=== PATIENT | female | born 1975 | race Asian ===

== ENCOUNTER 2020-05-05 20:47 | Emergency (ER) | payer OTHER ==
--- NOTE | 2020-05-05 22:02 | EDPHYS ---
Physician Documentation [facility] Name: Michelle Yeh Age: 44 yrs Sex: Female : 1975 Arrival Date: 05/05/2020 Time: 20:48 Bed 28 Private MD: ED Physician Yariel Hoskins HPI: 05/06 01:19 This 44 yrs old Female presents to ER via Ambulatory with complaints of Runny tw4 Nose, Shortness Of Breath. 01:19 The patient or guardian reports cough, described as mild. Onset: The symptoms/episode tw4 began/occurred yesterday. Severity of symptoms: At their worst the symptoms were mild, in the emergency department the symptoms are unchanged. Modifying factors: The symptoms are alleviated by nothing, the symptoms are aggravated by nothing. Associated signs and symptoms: The patient has no apparent associated signs or symptoms. The patient has not experienced similar symptoms in the past. Historical: - Allergies: 05/05 21:00 Ibuprofen; ll1 21:00 Azithromycin; ll1 - PMHx: 21:00 Asthma; chronis back pain; ll1 - PSHx: 21:00 ; ll1 - Immunization history:: Flu vaccine is up to date. - Social history:: Smoking status: Patient denies any tobacco usage or history of. Patient uses alcohol, but reports only rare drinking. only on a social basis. Patient/guardian denies using street drugs. ROS: 05/06 01:19 Constitutional: Negative for fever, chills, and weight loss, Eyes: Negative for injury, tw4 pain, redness, and discharge. Cardiovascular: Negative for chest pain, palpitations, and edema, Respiratory: Negative for shortness of breath, cough, wheezing, and pleuritic chest pain, Abdomen/GI: Negative for abdominal pain, nausea, vomiting, diarrhea, and constipation, Back: Negative for injury and pain, MS/Extremity: Negative for injury and deformity, Skin: Negative for injury, rash, and discoloration, Neuro: Negative for headache, weakness, numbness, tingling, and seizure. ENT: Positive for rhinorrhea. Exam: 01:19 Constitutional: This is a well developed, well nourished patient who is awake, alert, tw4 and in no acute distress. Head/Face: Normocephalic, atraumatic. ENT: Nares patent. No nasal discharge, no septal abnormalities noted. Tympanic membranes are normal and external auditory canals are clear. Oropharynx with no redness, swelling, or masses, exudates, or evidence of obstruction, uvula midline. Mucous membranes moist. Chest/axilla: Normal chest wall appearance and motion. Nontender with no deformity. No lesions are appreciated. Cardiovascular: Regular rate and rhythm with a normal S1 and S2. No gallops, murmurs, or rubs. Normal PMI, no JVD. No pulse deficits. Respiratory: Lungs have equal breath sounds bilaterally, clear to auscultation and percussion. No rales, rhonchi or wheezes noted. No increased work of breathing, no retractions or nasal flaring. Abdomen/GI: Soft, non-tender, with normal bowel sounds. No distension or tympany. No guarding or rebound. No evidence of tenderness throughout. Back: No spinal tenderness. No costovertebral tenderness. Full range of motion. MS/ Extremity: Pulses equal, no cyanosis. Neurovascular intact. Full, normal range of motion. Neuro: Awake and alert, GCS 15, oriented to person, place, time, and situation. Cranial nerves II-XII grossly intact. Motor strength 5/5 in all extremities. Sensory grossly intact. Cerebellar exam normal. Normal gait. Vital Signs: 05/05 20:57 BP 144 / 87; Pulse 102; Resp 18; Temp 98.5; Pulse Ox 100% ; Weight 83.01 kg; Height 5 ll1 ft. 4 in. (162.56 cm); Pain 3/10; 20:57 Body Mass Index 31.41 (83.01 kg, 162.56 cm) ll1 MDM: 21:05 Patient medically screened. tw4 05/06 01:19 Differential Diagnosis: Obstructed Airway Bronchitis Influenza. Data reviewed: vital tw4 signs, nurses notes. Data reviewed: radiologic studies, plain films. Data interpreted: Pulse oximetry: Interpretation: normal. Test interpretation: by ED physician or midlevel provider: plain radiologic studies. Counseling: I had a detailed discussion with the patient and/or guardian regarding: the historical points, exam findings, and any diagnostic results supporting the discharge/admit diagnosis. Special discussion: I discussed with the patient/guardian in detail that at this point there is no indication for admission to the hospital. It is understood, however, that if the symptoms persist or worsen the patient needs to return immediately for re-evaluation. 05/05 21:05 Order name: COVID-19 [facility] 05/05 21:05 Order name: Flu [facility] 05/05 20:55 Order name: CXR XRAY [facility] 05/05 21:05 Order name: Strep [facility] 05/05 21:05 Order name: Document PUI#; Complete Time: 21:17 4 05/05 21:05 Order name: Droplet/Contact Precautions; Complete Time: 21:17 4 05/05 21:05 Order name: Labs collected and sent; Complete Time: 21:17 4 05/05 21:05 [facility] [id number]/ ; Complete Time: 21:17 4 05/05 21:05 Order name: O2 Per Protocol; Complete Time: 21:17 tw4 Administered Medications: No medications were administered Disposition: 05/05/20 22:01 Discharged to Home. Impression: Acute upper respiratory infection, unspecified. - Condition is Stable. - Discharge Instructions: Upper Respiratory Infection, Adult. - Prescriptions for Tessalon Perles 100 mg Oral Capsule - take 1 capsule by ORAL route every 8 hours As needed; 15 capsule. Albuterol Sulfate 90 mcg/actuation - inhale 1-2 puff by INHALATION route every 4-6 hours; 1 Inhaler. - Medication Reconciliation Form, Thank You Letter, Antibiotic Education, Prescription Opioid Use form. - Follow up: Private Physician; When: Upon discharge from the Emergency Department; Reason: Recheck today's complaints, Continuance of care, Re-evaluation by your physician. - Problem is new. - Symptoms have improved. Signatures: Dispatcher [employer] EDMS Rojas Dunlap RN RN jb4 Yariel Hoskins MD MD tw4 Ronnie Bai RN RN ll1 Corrections: (The following items were deleted from the chart) 05/05 22:17 22:05/05/2020 22:01 Discharged to Home. Impression: Acute upper respiratory jb4 infection, unspecified. Condition is Stable. Forms are Medication Reconciliation Form, Thank You Letter, Antibiotic Education, Prescription Opioid Use. Follow up: Private Physician; When: Upon discharge from the Emergency Department; Reason: Recheck today's complaints, Continuance of care, Re-evaluation by your physician. Problem is new. Symptoms have improved. tw4
--- NOTE | 2020-05-05 22:02 | ER ---
Nurse's Notes [facility] Name: Michelle Yeh Age: 44 yrs Sex: Female : 1975 Arrival Date: 05/05/2020 Time: 20:48 Bed 28 Private MD: Diagnosis: Acute upper respiratory infection, unspecified Presentation: 05/05 20:57 Chief complaint: Patient states: Itchy throat. runny nose, slight cough, SAMUEL since last ll1 night. No fever. No N/V/D. Coronavirus screen: Client denies travel out of the [place] in the last 14 days. congestion, cough unrelated to allergies, fatigue, headache, sore throat, Client presents with at least one sign or symptom that may indicate coronavirus-19. Standard/surgical mask placed on the client. Ebola Screen: Patient denies travel to an Ebola-affected area in the 21 days before illness onset. Initial Sepsis Screen: Does the patient meet any 2 criteria? HR > 90 bpm. No. Patient's initial sepsis screen is negative. Risk Assessment: Do you want to hurt yourself or someone else? Patient reports no desire to harm self or others. Onset of symptoms was May 04, 2020. 20:57 Method Of Arrival: Ambulatory ll1 20:57 Acuity: CJ 3 ll1 Historical: - Allergies: 21:00 Ibuprofen; ll1 21:00 Azithromycin; ll1 - PMHx: 21:00 Asthma; chronis back pain; ll1 - PSHx: 21:00 ; ll1 - Immunization history:: Flu vaccine is up to date. - Social history:: Smoking status: Patient denies any tobacco usage or history of. Patient uses alcohol, but reports only rare drinking. only on a social basis. Patient/guardian denies using street drugs. Screenin:15 Abuse screen: Denies threats or abuse. Nutritional screening: No deficits noted. jb4 Tuberculosis screening: No symptoms or risk factors identified. Fall Risk None identified. Assessment: 21:15 General: Appears in no apparent distress. comfortable, Behavior is calm, cooperative, jb4 appropriate for age. Pain: Denies pain. Neuro: Level of Consciousness is awake, alert, obeys commands, Oriented to person, place, time, situation. Cardiovascular: Patient's skin is warm and dry. Respiratory: Reports shortness of breath on exertion Airway is patent Respiratory effort is even, unlabored, Respiratory pattern is regular, symmetrical. GI: No signs and/or symptoms were reported involving the gastrointestinal system. : No signs and/or symptoms were reported regarding the genitourinary system. EENT: No signs and/or symptoms were reported regarding the EENT system. Derm: Skin is intact, Skin is pink, warm \T\ dry. Musculoskeletal: Circulation, motion, and sensation intact. Range of motion: intact in all extremities. 22:16 Reassessment: Patient appears in no apparent distress at this time. Patient and/or jb4 family updated on plan of care and expected duration. Pain level reassessed. Patient is alert, oriented x 3, equal unlabored respirations, skin warm/dry/pink. Vital Signs: 20:57 BP 144 / 87; Pulse 102; Resp 18; Temp 98.5; Pulse Ox 100% ; Weight 83.01 kg; Height 5 ll1 ft. 4 in. (162.56 cm); Pain 3/10; 20:57 Body Mass Index 31.41 (83.01 kg, 162.56 cm) ll1 ED Course: 20:48 Patient arrived in ED. cl3 20:54 Yariel Hoskins MD is Attending Physician. tw4 20:59 Triage completed. ll1 21:00 Arm band placed on Patient placed in an exam room, on a stretcher. ll1 21:15 Patient has correct armband on for positive identification. Bed in low position. Call jb4 light in reach. Side rails up X 1. Pulse ox on. NIBP on. 21:16 Rojas Dunlap RN is Primary Nurse. jb4 21:47 CXR XRAY In Process Unspecified. EDMS 22:16 No provider procedures requiring assistance completed. Patient did not have IV access jb4 during this emergency room visit. Administered Medications: No medications were administered Outcome: 22:01 Discharge ordered by . tw4 22:16 Discharged to home ambulatory. jb4 22:16 Condition: stable 22:16 Discharge instructions given to patient, Instructed on discharge instructions, follow up and referral plans. medication usage, Demonstrated understanding of instructions, follow-up care, medications, Prescriptions given X 2. 22:17 Patient left the ED. jb4 Signatures: Dispatcher [employer] EDSC oRjas Dunlap RN RN jb4 Yariel Hoskins MD MD tw4 Emilie Bai cl3 Ronnie Bai, MELANI RN ll1
[2020-05-05 22:23] VITALS: BP 144/87; TEMP 98.5; O2SAT 100
--- NOTE | 2020-05-06 07:59 | RAD REPORT ---
EXAM DESCRIPTION: [place] [facility]/05/2020 9:47 pm CLINICAL HISTORY: sob COMPARISON: 2018 FINDINGS: The lungs appear clear of acute infiltrate. The heart is normal size IMPRESSION: No acute abnormalities displayed
== END 2020-05-05 22:17 | disposition home or self-care (01) ==
LOC: ER 20:47
DX: U07.1 COVID-19 (principal); J06.9 Acute upper respiratory infection, unspecified; Z88.1 Allergy status to other antibiotic agents; Z88.6 Allergy status to analgesic agent
CPT/HCPCS: 87081; 87804 ×2; 71045; 99283; U0001

== ENCOUNTER 2021-04-27 19:58 | Emergency (ER) | payer OTHER ==
--- OUTSIDE RECORDS SUMMARY | 2021-04-27 20:01 | XMS REPORT | Continuity of Care Document ---
:1975 Author Organization [facility] t Address [address] [place] [address] Dr. Caceres. [address] [place] [address] Care Team Providers Name Role Phone Phylicia Montes MD Attending Clinician PHYLICIA MONTES Attending Clinician Unavailable Leslie Lewis MD Attending Clinician Vijay HARDY Attending Clinician Quinn Henriquez MD Attending Clinician PHYLICIA MONTES Admitting Clinician Unavailable Payers Payer Name Policy Type Policy Number Effective Date Expiration Date S brandan AETNA - MGD [id number] [address] [facility] CAREAETNA SELECT 00:00:00 - Medica l [facility] [id number] 2020-Present HMO/POS Problems Condition Condition Condition Status Onset Resolution Last Treating Co mments Source Name Details Category Date Date Treatment Clinician Date Missed ab Missed ab Disease Active [facility] Center Allergies, Adverse Reactions, Alerts Allergy Allergy Status Severity Reaction(s) Onset Inactive Treating Comm ents Source Name Type Date Date Clinician Ibuprofe Propensi Active [facility] - adverse 00:00: Medical reaction 00 Center s Clarithr Propensi Active [facility] omycin [facility] to [facility]- [facility] - adverse 00:00: Medical reaction 00 Center s Shrimp Propensi Active Anaphylaxis [facility] 5 [facility] - adverse 00:00: Medical reaction 00 Center s Family History Family Member Diagnosis Comments Start Date Stop Date Source Natural father Hypertension [facility] Natural mother Hypertension [facility] Social History Social Habit Start Date Stop Date Quantity Comments Source History SDOH [facility] - Alcohol Std Drinks Medica l Center History SDOH [facility] - Alcohol Binge Medical Radha ter Sex Assigned At [facility] Tobacco use and 2021-03-16 2021-03-16 Never used [facility] kes - exposure 00:00:00 00:00:00 [facility] Alcohol intake 2021-03-16 2021-03-[address] [facility] - 00:00:00 00:00:00 non-drinker Medical Cente r (finding) History SDOH 2021-02-05 2021-02-[address] [facility] - Alcohol Frequency 00:00:00 00:00:00 [facility] Smoking Status Start Date Stop Date Source [facility] Mc[facility] Medications Ordered Filled Start Stop Current Ordering Indication Dosage Frequency Signature Comments Components Source Medication Medication Date Date Medication? Clinician (SIG) Name Name acetaminoph 2021- Yes 650mg Take [address] en 02-19 05-13 tablets [facility] - (TYLENOL) 00:00: 23:59 (650 mg Medi enrique 325 MG 00 :00 total) by Center tablet mouth every 6 (six) hours as needed for Pain for up to 360 days. Symbicort Yes 2{puff} Q.5D Inhale [address] 160-4.5 4-15 puffs by [facility] - mcg/actuati 00:00: mouth via M edical on inhaler 00 inhaler 2 Cent er (two) times daily. promethazin 2020- No GIVE [address] e-dextromet 4-15 -12 TEASPOONFU L ukes - horphan 00:00: 00:00 L BY MOUTH Med ical (PROMETHAZI 00 :00 FOUR TIMES Ce nter NE-DM) DAILY 6.25-15 NEEDED FOR mg/5 mL COUGH syrup montelukast 2020- No 10mg QD Take [address] (SINGULAIR) 2-12 by mouth Melly es - 10 mg 00:00: 00:00 daily. Medical tablet 00 :00 Center Vital Signs Vital Name Observation Time Observation Value Comments Source Body temperature 2021-03-15 08:38:00 36.33 [facility] Body height 2021-03-15 08:38:00 162.6 cm [facility] Body weight 2021-03-15 08:38:00 81.647 kg [facility] BMI 2021-03-15 08:38:00 30.90 kg/m2 [facility] Systolic blood 2021-02-19 08:28:00 128 mm[Hg] [facility] Diastolic blood 2021-02-19 08:28:00 74 mm[Hg] [facility] Heart rate 2021-02-19 08:28:00 84 /min [facility] Respiratory rate 2021-02-19 08:28:00 18 /min [facility] Oxygen saturation in 2021-02-19 08:28:00 100 /min [facility] Arterial blood by Medical Ce nter Pulse oximetry Procedures Procedure Date / Time Performed Performing Clinician [facility] e TISSUE EXAM 2021-02-19 07:47:00 Hank Montes [facility] s [facility] DILATATION & 2021-02-19 07:33:00 Hank Montes [facility]I s - CURETTAGE,EVACUATION/SUC [facility] TION SARS-COV2/RT-PCR ([facility] & 2021-02-14 07:34:[address] [facility] REF [facility] CBC W/PLT COUNT & AUTO 2021-02-14 07:34:00 Hank Montes [facility] - DIFFERENTIAL [facility] TYPE AND SCREEN, 2021-02-14 07:34:00 Hank Montes CHI es - AUTOMATED [facility] US OB TRANSVAGINAL 2021-02-13 11:12:00 Hank Montes [facility] - [facility] HCG, QUANTITATIVE, 2021-02-05 15:44:00 Hank Montes [facility] CBC W/PLT COUNT & AUTO 2021-02-05 15:44:[address] [facility] - DIFFERENTIAL [facility] ANTIBODY SCREEN ([facility] 2021-02-05 15:44:[address] [facility] - & [facility] ONLY) [facility] ABORH, MANUAL 2021-02-05 15:44:[address] US OB TRANSVAGINAL 2021-02-05 07:58:[address] [facility] Plan of Care Planned Activity Planned Date Details Comments Source Future Scheduled 2021-06-[address] [facility] - Test 00:00:00 (Season Ended) [code Medical Center = INFLUENZA VACCINE (Season Ended)] Future Scheduled [address] [facility] - Test 00:00:00 malignant neoplasm Medical C enter of cervix (procedure) [code = 763978144] Future Scheduled [address] [facility] - Test 00:00:00 (procedure) [code = Medical Center 37423202] Future Scheduled 1995 DTAP/TDAP/TD [facility] - Test 00:00:00 VACCINES (1 - Tdap) [facility] [code = DTAP/TDAP/TD VACCINES (1 - Tdap)] Future Scheduled [address] [facility] - Test 00:00:00 SCREENING [code = Medical nter HEPATITIS C SCREENING] Future Scheduled 1988 COVID-19 VACCINE (1) [facility] - Test 00:00:00 [code = COVID-[address] VACCINE (1)] Results Test Description Test Time Test Comments Results Result Comments Source Tissue Exam 2021-02-20 10:48:00 Test Item Value Reference Range Interpretation Comme nts Case Report (test code = 104) Surgical Pathology Report Case: [id number] Authorizing Provider: Hank Montes, Collected: 02/19/2021 07:47 AM Ordering Location: [facility] PERIOPERATIVE Received: 02/19/2021 09:37 AM SERVICES Pathologist: Alanna Millan MD Specimen: Products of Conception DIAGNOSIS (test code = 3220) e8wopWZjADCrc0xgIPGmcBYmUwMyJiXwCeJcYq pc dWMxIHtccnRmMVxlcGljOTIwMlxhbnNpXHNwbHRw T2AjzxarUWeaJS6aYH9jrXzlhIHumBOqHCIlCgUr n6ckp299bIEqj6czZULPokhepVn3xDkpD94th2C0 TlrzC19laASyBAgmsOOdosqpzlYeCPWUX5KPD9AS MF6MHXJBJeOSOLSZT83nPKYCFSTGNGLWX26uUT7J JNGCBvVMHJZCYFhhrZXbNQDyFE1jRS2BIKDFDoJd S2jJQrzONzmHUTBSXJvUZSEVNDZGUEJHODGEXA6L MsJJDSLvQTFVBuBBO6BPEoJtX2pUZVTDXkCQTVCW CYGMFpFpSSCEQ10SXwGGVJYgdvjmFFVlOKlokGhp XDDtze16VHW1LrHph4O3WGO4KADvNQSrd1ftXUUl mLDgMvLhKxZdDlZyYphzaWXtQLBkGtGbe3rjd439 lBDmy2kwZUZqAxA7aJEaOIKdcYJeZ949MXCmETyj d8lra4KzIODjzCOfj8W5CNGNphpspAt6cEtvA14i d1A0MznjZ0yeUGEiTKZyX5MgXT5nFVJmLgl6UGH5 UQS5JFCtDZYbV4KqWP1xNEMolUEoIKs0h8zdzJev UWXqSSJ0s4ukYDbqprOyNA1vgq3cuIi6h6dvwrLs TYInZUGqhYHUOZPsK6FqdVitXr6vvGp8nTmhYdeo GSK1Mwu9BZ2tzn58yui5hNtkIFBnsqoaMvX1VRcv TOCiaqrxLSu3AEkkRCPpiRG8HLWeiROuV0PpIESr QV9ysqq4ZRP0THgcNUYzVhU0UUZpoPBkAZAsnNua PCnzy382CNL8RfPxZO9rZ6Nqa2P0tS0jvWCdPVPt hTHyBdOlWJKkof8kzNFkXSprf5LyRRA2rsU7wTAa lAQqQHJxSyB7QWfjGW1orp74ZENoLON8id9fyVTr kOihbsQgfZHuWKqxT1CfFQUze944IHZjU9SzCVBg d2E8loGvAqMnEVPbyJR2mxB3GRXlPP2lwvmdl8qe DEdqVVclILLxkbQ6qeB0ZLKdtNUvF5DymN4vALYz EU0zutltj2fgFYK5MAodYADhKSG5HxBlDKXud5Ic mpm8OwZss8FysQIwPTwhG74qk430NEItjdTuJ1ty wSEnagjfeTYjrosoHCdmrpJ6EDIyDHkrenyqKQWf DYflY7fmIhNsQTJwbEdoNNiua2GxNVYnZEZzXfBu nXVhDSNkOju4LAMgeLYwRFRyTeAwV8xtokghXmSA CTSig9udE0uedVUXzWIxI6McYTxtlqKbIUywANst MuAfDVz7CK46IBK5WXXoik30 CPT Code(s) (test code = 3357) b3cilNBwYKZsyAD4DlJsDXDsw6hst1AqdYPh cGFy FNnkpUHgvvFxnf91dSX5cI10YK4nJCTzLhT8JHVb lxW4Cnp1OWNjIJDdgBSyS494z8ekx8oopwIgpGM7 fVxwYXJkXHBsYWluXGZzMjAgODgzMDVccGFyfQ== CLINICAL HISTORY (test code = 3356) s1zcyXYhOWCpvKT1LiBtOTBsx4yfk9M sdHBncGFy MSkycHAsopSmgb27lFI6dU51YR0mVLDzZhO1UENx ypE3Laf5XNDpYOYuhFAdU040w9tsm5elalVpgOL8 lBcfXCLqCHZiLUkyECRzRoQhPOycl4QuEMMdo5B6 bD1wEMJieh3= SPECIMEN SOURCE (test code = 3377) m1svnPHtOSQggDQ3NlGuINDwk7nue0Ls dHBncGFy HGrjhWExmtLwnn88mAH1bL35BK7oSWOsLqN3FZSr kdI4Ahw0UUDvNEPvdXOuK914h6smt5ucupEasDN6 uCkkCUKdHBKtLBswGSSsKvRtEFYwHCSzkIWxp1Dm R74qH3DvoJoyklMtiSAxbK== GROSS DESCRIPTION (test code = 3366) r7epwDDmIAYnlSU4VbIfRURlc2clf4 BsdHBncGFy IKxhtNBshiGvlh96eQP4fK10AS7zWTRqLlU2KRJt lkO7Ggf7GQEkEQWcwSYzS281g4hxp2tvjsUvpWV8 fVxwYXJkXHBsYWluXGZzMjAgVGhlIHNwZWNpbWVu EAesWHTbZ9MhctMdKHtwTTMwyTB9pTObIHJoXDDb NBJltKDfBFumfAdcjNbqHPWyqSayqoPeyaZtHB8r LHSnFMGtL4UrQZDtX02mXSEefB3rFQBfYY2rYRJa y1wlqqO7IFDsFTIeLnFiq0F8Q9HxWP8sWFQvwbTp hVRob85hSWEmDCGrr59xpCI8xjNyJaHyfLp7rCYf JHGmXEEqVrMoa51zvWndt4KoTMTfDApiXH03lyGe WAUysRAiKCZ1rOWcnV3lZWGnsCBbdGyeZLT1wPpk YCOdA8JmKKV1E9Ybl71hHRA2sTIbZO8hHKE9zppp AxD2WdJvnZT4ObFllRJiSsQiW03omA3xLSgvnmBk DWWlIpGEwZUoo0OlF7wpBT0jX12mp3ybyHXvg9Vb oO6hc3mitURvzbyvlV90huZ0uPUhiAUvKL3hSIAd I2mcpSKkWN5zCL5sdrjwyWUiEoG7ROpxiGCnqMHz TJDvCMblEV30bZIbVRArNMRwkHUge0EwiGG3nTYz CBMsF9Fim06kYMTpDGJzgGMuwMI8CCWvbT82amPA RDC5jzKSEo5yLX4ZS5BdYKjzDFQ1 MICROSCOPIC DESCRIPTION (test code = k9hicPMsPGDoqBQ3JnWgRCIfn4mxy1 BsdHBncGFy 3371) VRhavVMfzqWvbc79oQQ1gZ59QD3gVSGuSdB9NFYz bfT5Gyv1JDDnOPNtkWRuR015h3hfj0ekwlMqbOJ9 oMmeBURdDFYlAHmcYULrTqKyPIBmLr3fmDGcLXyy YXJ9 Gross assessment was performed at (test [facility], code = 2777) Department of Pathology, [address] [place] [address], Technical component was performed at [facility], (test code = 2778) Department of Pathology, [address] [place] [address], Professional component was performed at [facility], (test code = 2779) Department of Pathology, [address] [place] [address], [facility] [id number] 10:48:00Surgical Pathology Report Case: [id number] Authorizing Provider: Hank Montes, Collected: 02/19/2021 07:47 AM OrderingLocation: [facility] PERIOPERATIVE Received: 02/19/2021 09:37 AM SERVICES Pathologist: Alanna Millan MD Specimen: Products of Conception PRODUCTS OF CONCEPTION,DILATATION AND CURETTAGE: - IMMATURE CHORIONIC VILLI AND MEMBRANES, CONSISTENT WITH INTRAUTERINE PREGNANCYMG/pl Signing Pathologist Direct Phone Line: [phone] signed byAlanna Millan MD on 02/20/2021 at 10:48 [id number] abortionProducts of conception The specimen is received in fixative and labeled with the patient's name, medical record number and design ated as "products of conception" and consists of multiple red-brown tissue fragments received withina plastic cylindrical suction device measuring 6.0 x 4.0 x 2.0 cm in aggregate. The specimen consists of possible villous tissue and decidua. No obvious parts are identified. Tetryl Boiling Tub Operator sections are submitted into A1 to A3. MG/pl Performed [facility], Department of Pathology, [address] [place] [address], [facility], Department of Pathology, [address] [place] [address], [facility], Department of Pathology, [address] [place] [address], JNSS-CoV2/RT-PCR (Asymptomatic ONLY)2021-02-14 15:29:00 Test Item Value Reference Range Interpretation Comments SARS-COV2/RT-PCR Negative Not Detected, Performanc e of the Xpert (test code = Negative, See Xpress 59679-9) external report SARS-CoV-2/F deborah/RSV test for linked test has only bee n established in nasopharyngeal swab specimens. Use of the Xpert Xpress SARS-CoV-2/Flu/ RSV test with other spec imen types has not b een assessed and pe rformance characteristics are unknown. As wi th any molecular test, mutations withi n the targeted geneti c regions identified by t he Xpert Xpress SARS-CoV-2/Flu/ RSV test could affect pr chase and/or probe bi nding resulting in fa ilure to detect the pres ence of virus or the vi renuka being detected less predictably.Neg ative results do not preclude SARS-CoV-2, Inf luenza A/B, or RSV inf ection and should not be used as the sole bas is for treatment or ot her patient managem ent decisions. Res ults from the Xpert Xpres s SARS-CoV-2/Flu/ RSV test should be corre lated with the clinic al history, epidem iological data, and other data available to th e clinician evalu ating the patient. Inval id test results may occ ur from improper specim en collection; mary lure to follow the andrew mmended sample collecti on, handling, and s torage procedures; nahed hnical error. False ne gative results may occ ur if virus is presen t at levels below th e analytical limi t of detection (LOD: 131 copies/mL). Vi ral nucleic acid ma y persist in vivo, indepe ndent of virus viability . Detection of an alyte target(s) does not imply that the corres ponding virus(es) are i nfectious or are the caus ative agents for clin ical symptoms. Rece nt patient exposur e to FluMist or ot her live attenuated infl uenza vaccines may ca use inaccurate posi tive results.This te st has been authorized by FDA under an EUA fo r use by authorized labo cabrera. This test is o nly authorized for the duration of the declaration leslye t circumstances e xist justifying the authorization o f emergency use o f in vitro diagnosti c tests for detection a nd/or diagnosis of CO VID-19 under Section 5 64(b)(1) of the Federal Food, Drug and Cosmet ic Act, 21 U.S.C. 360bbb-3(b)(1), unless the authorizati on is terminated or r evoked sooner. Fact Sh eet for Healthcare Prov iders: https://www.cep heid.com/ Documents/Xpert %20Xpress %68AFMT-AzU-5-F deborah-RSV/30 2-4508%20Rev.%2 0B%20HCP% 20Fact%20Sheet. pdf Fact Sheet for Healt hcare Patients: https://www.MakerCraftid.com/ Documents/Xpert %20Xpress %91ZBDY-YsO-6-F deborah-RSV/30 2-4507%20Rev.%2 0B%20Pati ent%20Fact%20Sh eet.pdf SARS-COV-2 [facility] Performed at:[facility] PERFORMING LAB Renita Burch [id number] (test code = Cecilio Rubinr [address]-6) [place] [address] ph: [phone] [facility] & REF LABS)2021-02-14 15:29:00 Test Item Value Reference Range Interpretation Comments SARS-COV2/RT-PCR Negative Not Detected, Performanc e of the Xpert (test code = Negative, See Xpress [id number]) external report SARS-CoV-2/F deborah/RSV test for linked test has only bee n established in nasopharyngeal swab specimens. Use of the Xpert Xpress SARS-CoV-2/Flu/ RSV test with other spec imen types has not b een assessed and pe rformance characteristics are unknown. As wi th any molecular test, mutations withi n the targeted geneti c regions identified by stevie miramontes Xpert Xpress SARS-CoV-2/Flu/ RSV test could affect pr chase and/or probe bi nding resulting in fa ilure to detect the pres ence of virus or the vi renuka being detected less predictably.Neg ative results do not preclude SARS-CoV-2, Inf luenza A/B, or RSV inf ection and should not be used as the sole bas is for treatment or ot her patient managem ent decisions. Res ults from the Xpert Xpres s SARS-CoV-2/Flu/ RSV test should be corre lated with the clinic al history, epidem iological data, and other data available to th e clinician evalu ating the patient. Inval id test results may occ ur from improper specim en collection; mary lure to follow the andrew mmended sample collecti on, handling, and s torage procedures; nahed hnical error. False ne gative results may occ ur if virus is presen t at levels below th e analytical limi t of detection (LOD: 131 copies/mL). Vi ral nucleic acid ma y persist in vivo, indepe ndent of virus viability . Detection of an alyte target(s) does not imply that the corres ponding virus(es) are i nfectious or are the caus ative agents for clin ical symptoms. Rece nt patient exposur e to FluMist or oth er live attenuated infl uenza vaccines may ca use inaccurate posi tive results.This te st has been authorized by FDA under an EUA fo r use by authorized labo ratories. This test is o nly authorized for the duration of the declaration leslye t circumstances e xist justifying the authorization o f emergency use o f in vitro diagnosti c tests for detection a nd/or diagnosis of CO VID-19 under Section 5 64(b)(1) of the Federal Food, Drug and Cosmet ic Act, 21 U.S.C. 360bbb-3(b)(1), unless the authorizati on is terminated or r evoked sooner.Fact She et for Healthcare Prov iders: https://www.TipRanks/ Documents/Xpert %20Xpress %79HTFW-NmN-3-F deborah-RSV/30 2-4508%20Rev.%2 0B%20HCP% 20Fact%20Sheet. pdfFact Sheet for Healt hcare Patients: https://www.TipRanks/ Documents/Xpert %20Xpress %26KOWS-KbE-8-F deborah-RSV/30 2-4507%20Rev.%2 0B%20Pati ent%20Fact%20Sh eet.pdf SARS-COV-2 [facility] Performed at:[facility] PERFORMING LAB Renita Burch [id number] (test code = Cecilio Colmenares 7218976) [place] [address] ph: [phone] Type and screen, [id number] 10:55:00 Test Item Value Reference Range Interpretation Comments ABO/RH AUTOMATED (BEAKER) (test B POSITIVE ECHO code = 2260) Ab Scrn (test code = 890-4) NEGATIVE [facility]CHO [facility] + automated [id number] 07:52:00 Test Item Value Reference Range Interpretation Comments WBC (test code = 6690-2) 10.0 See_Comment [A utomated message] The system [employer] generated this result transmitted ref erence range: 4.0 - 10 .0 K/L. The refe rence range was not u sed to interpret this result as normal/abnor mal. RBC (test code = 789-8) 4.55 See_Comment [Au tomated message] The system [employer] generated this result transmitted ref erence range: 4.00 - 5 .00 M/L. The refe rence range was not u sed to interpret this result as normal/abnor mal. MCHC (test code = 786-4) 32.6 See_Comment [A utomated message] The system [employer] generated this result transmitted ref erence range: 32.0 - 3 6.0 GM/DL. The refe rence range was not u sed to interpret this result as normal/abnor mal. Hematocrit (test code = 39.9 % 36-46 4544-3) MCV (test code = 787-2) 87.7 fL 82-99 MCH (test code = 785-6) 28.6 pg 27-33 RDW (test code = 788-0) 12.9 % 12-15 Platelets (test code = 322 See_Comment [Aut omated message] 777-3) The system [employer] generated this result transmitted ref erence range: 150 - 43 0 K/CU MM. The referen ce range was not u sed to interpret this result as normal/abnor mal. MPV (test code = 9.6 fL 6-11.5 93152-7) nRBC (test code = 413) 0 See_Comment [Aut omated message] The system [employer] generated this result transmitted ref erence range: 0 - 0 /1 00 WBC. The refere nce range was not u sed to interpret this result as normal/abnor mal. % Neutros (test code = 65 % 429) % Lymphs (test code = 24 % 430) % Monos (test code = 8 % 431) % Eos (test code = 432) 2 % % Baso (test code = 437) 0 % # Neutros (test code = 6.53 See_Comment [Aut omated message] 670) The system [employer] generated this result transmitted ref erence range: 1.80 - 8 .00 K/L. The refe rence range was not u sed to interpret this result as normal/abnor mal. # Lymphs (test code = 2.38 See_Comment [Auto mated message] 414) The system [employer] generated this result transmitted ref erence range: 1.48 - 4 .50 K/L. The refe rence range was not u sed to interpret this result as normal/abnor mal. # Monos (test code = 0.76 See_Comment [Autom ated message] 415) The system [employer] generated this result transmitted ref erence range: 0.00 - 1 .30 K/L. The refe rence range was not u sed to interpret this result as normal/abnor mal. # Eos (test code = 416) 0.19 See_Comment [Au tomated message] The system [employer] generated this result transmitted ref erence range: 0.00 - 0 .50 K/L. The refe rence range was not u sed to interpret this result as normal/abnor mal. # Baso (test code = 417) 0.04 See_Comment [A utomated message] The system [employer] generated this result transmitted ref erence range: 0.00 - 0 .20 K/L. The refe rence range was not u sed to interpret this result as normal/abnor mal. Immature 1 % 0-0 H Granulocytes-Relative (test code = 2801) Lab Interpretation (test Abnormal code = 02337-2) [facility] W/PLT COUNT & AUTO [id number] 07:52:00 Test Item Value Reference Range Interpretation Comments WHITE BLOOD CELL COUNT (BEAKER) 10.0 K/ L 4.0-10.0 (test code = 775) RED BLOOD CELL COUNT (BEAKER) 4.55 M/ L 4.00-5.00 (test code = 761) HEMOGLOBIN (BEAKER) (test code = 13.0 GM/DL 12.0-15.5 410) HEMATOCRIT (BEAKER) (test code = 39.9 % 36.0-46.0 411) MEAN CORPUSCULAR VOLUME (BEAKER) 87.7 fL 82.0-99.0 (test code = 753) MEAN CORPUSCULAR HEMOGLOBIN 28.6 pg 27.0-33.0 (BEAKER) (test code = 751) MEAN CORPUSCULAR HEMOGLOBIN CONC 32.6 GM/DL 32.0-36.0 (BEAKER) (test code = 752) RED CELL DISTRIBUTION WIDTH 12.9 % 12.0-15.0 (BEAKER) (test code = 412) PLATELET COUNT (BEAKER) (test 322 K/CU MM 150-430 code = 756) MEAN PLATELET VOLUME (BEAKER) 9.6 fL 6.0-11.5 (test code = 754) NUCLEATED RED BLOOD CELLS 0 /100 WBC 0-0 (BEAKER) (test code = 413) NEUTROPHILS RELATIVE PERCENT 65 % (BEAKER) (test code = 429) LYMPHOCYTES RELATIVE PERCENT 24 % (BEAKER) (test code = 430) MONOCYTES RELATIVE PERCENT 8 % (BEAKER) (test code = 431) EOSINOPHILS RELATIVE PERCENT 2 % (BEAKER) (test code = 432) BASOPHILS RELATIVE PERCENT 0 % (BEAKER) (test code = 437) NEUTROPHILS ABSOLUTE COUNT 6.53 K/ L 1.80-8.00 (BEAKER) (test code = 670) LYMPHOCYTES ABSOLUTE COUNT 2.38 K/ L 1.48-4.50 (BEAKER) (test code = 414) MONOCYTES ABSOLUTE COUNT (BEAKER) 0.76 K/ L 0.00-1.30 (test code = 415) EOSINOPHILS ABSOLUTE COUNT 0.19 K/ L 0.00-0.50 (BEAKER) (test code = 416) BASOPHILS ABSOLUTE COUNT (BEAKER) 0.04 K/ L 0.00-0.20 (test code = 417) IMMATURE GRANULOCYTES-RELATIVE 1 % 0-0 H PERCENT (BEAKER) (test code = 2801) TVP - OB transvaginal [id number] 11:12:00Biparietal DiameterAbdominal CircumferenceFemoral DiameterHead CircumferenceHC/ACEstimated WeightElsie [facility]1975 FIRST TRIMESTER ULTRASOUND Date performed:02/13/2021 LMP:12/08/2020GA:[id number]:09/14/2021 Yolk sac: 8.2 mmFHR:0GS:CRL:9.4 mm US GA:[id number] DAVIDA:10/02/2021 Right ovary: Left ovary: Scanned by: [facility] CenterhCG, quantitative, [id number] 09:11:00 Test Item Value Reference Range Interpretation Comments hCG,Beta 40131 mIU/mL Subunit,Qnt,Se Female rum (test code (Non- ) 0 = ) - 5 (Postmenopausal ) 0 - 8 Female () Weeks of Gestation 3 6 - 71 4 10 - 750 5 686 - 8846 6 504 - 80053 7 4836 -849920 8 11 336 -605542 9 08663 -1 67596 10 18957 -732941 12 2 8474 -551126 1 4 69528 - 03515 15 90193 - 74697 16 5815 - 42280 1 7 7914 - 81442 18 9570 - 07190Res ults confirmed ondilution.Roch e ECLIA methodolo gy [facility] (test code Performed at: 01 - = [facility]) [facility] [address] [id number] Director: Papito López MD, Phone: [phone] [facility] W/ PLT COUNT AUTO [id number] 09:11:00 Test Item Value Reference Range Interpretation Comments WBC (test code = 12.8 See_Comment H [Automated ) message] The system which generated this result transmitted reference range : 3.4 - 10.8 x10E3/uL. The reference range was not used to interpret this result as normal/abnormal . RBC (test code = 4.82 See_Comment [Automated 824-6) message] The system which generated this result transmitted reference range : 3.77 - 5.28 x10E6/uL. The reference range was not used to interpret this result as normal/abnormal . Hemoglobin (test code 13.6 g/dL 11.1-15.9 = ) Hematocrit (test code 41.7 % 34-46.6 = ) MCV (test code = 87 fL 79-97 ) MCH (test code = 28.2 pg 26.6-33 ) MCHC (test code = 32.6 g/dL 31.5-35.7 ) RDW (test code = 12.9 % 11.7-15.4 ) Platelets (test code 321 See_Comment [Autom ated = ) message] The system which generated this result transmitted reference range : 150 - 450 x10E3/uL. The reference range was not used to interpret this result as normal/abnormal . % Neutros (test code 75 % Not Estab. = ) % Lymphs (test code = 15 % Not Estab. ) % Monos (test code = 8 % Not Estab. ) % Eos (test code = 1 % Not Estab. ) % Baso (test code = 0 % Not Estab. ) # Neutros (test code 9.7 See_Comment H [Autom ated = ) message] The system which generated this result transmitted reference range : 1.4 - 7.0 x10E3/uL. The reference range was not used to interpret this result as normal/abnormal . # Lymphs (test code = 1.9 See_Comment [Auto mated ) message] The system which generated this result transmitted reference range : 0.7 - 3.1 x10E3/uL. The reference range was not used to interpret this result as normal/abnormal . # Monos (test code = 1.0 See_Comment H [Autom ated ) message] The system which generated this result transmitted reference range : 0.1 - 0.9 x10E3/uL. The reference range was not used to interpret this result as normal/abnormal . # Eos (test code = 0.1 See_Comment [Automat ed ) message] The system which generated this result transmitted reference range : 0.0 - 0.4 x10E3/uL. The reference range was not used to interpret this result as normal/abnormal . Baso (Absolute) (test 0.0 See_Comment [Auto mated code = ) message] The system which generated this result transmitted reference range : 0.0 - 0.2 x10E3/uL. The reference range was not used to interpret this result as normal/abnormal . % Immature Grans 1 % Not Estab. (test code = ) # Immature Grans 0.1 See_Comment [Automated (test code = ) messag e] The system which generated this result transmitted reference range : 0.0 - 0.1 x10E3/uL. The reference range was not used to interpret this result as normal/abnormal . ANABELA (test code = ANABELA) Performed at: [facility] [id number] Director: Papito López MD, Phone: [phone] Lab Interpretation Abnormal (test code = 96091-4) [facility] [id number] 09:11:00 Test Item Value Reference Range Interpretation Comments ABO Grouping B (test code = 1035834) Rh Factor (test Positive Please note: Prior code = 8992899) records for this patient's ABO / Rh type are notavailable fo r additional verification. ANABELA (test code = Performed at: ANABELA) - [facility] [id number] Director: Papito López MD, Phone: [phone] [facility] 2021-02-06 09:11:00 Test Item Value Reference Range Interpretation Comments Antibody Screen (test Negative Negative code = 3625489) ANABELA (test code = ANABELA) Performed at: [facility] [id number] Director: Papito López MD, Phone: [phone] [facility]
--- NOTE | 2021-04-28 00:18 | ER ---
Nurse's Notes [facility] Name: Michelle Yeh Age: 45 yrs Sex: Female : 1975 Arrival Date: 04/27/2021 Time: 20:02 Bed 20 Private MD: Diagnosis: Other pneumonia, unspecified organism-right lower lobe Presentation: 04/27 21:39 Chief complaint: Patient states: Began with sore throat, cough, chills x 3 days; No lp1 other sick contacts at home. Coronavirus screen: Client denies travel out of the [place] in the last 14 days. chills, congestion, headache, muscle pain, runny nose, sore throat, Client presents with at least one sign or symptom that may indicate coronavirus-19. Standard/surgical mask placed on the client. Ebola Screen: No symptoms or risks identified at this time. Risk Assessment: Do you want to hurt yourself or someone else? Patient reports no desire to harm self or others. Onset of symptoms was April 23, 2021. 21:39 Method Of Arrival: Ambulatory lp1 21:39 Acuity: CJ 4 lp1 21:41 Initial Sepsis Screen: Does the patient meet any 2 criteria? No. Patient's initial lp1 sepsis screen is negative. Does the patient have a suspected source of infection? No. Patient's initial sepsis screen is negative. 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 - Social history:: Smoking status: Patient denies any tobacco usage or history of. Screenin:45 Abuse screen: Denies threats or abuse. Denies injuries from another. Nutritional lp1 screening: No deficits noted. Tuberculosis screening: No symptoms or risk factors identified. Fall Risk None identified. Assessment: 22:30 General: Appears in no apparent distress. Behavior is calm, cooperative, appropriate lp1 for age. Pain: Complains of pain in throat Pain currently is 5 out of 10 on a pain scale. Neuro: Level of Consciousness is awake, alert, obeys commands. Cardiovascular: Patient's skin is warm and dry. Respiratory: Reports cough that is non-productive, Airway is patent Respiratory effort is even, unlabored, Breath sounds are clear bilaterally. GI: No signs and/or symptoms were reported involving the gastrointestinal system. : No signs and/or symptoms were reported regarding the genitourinary system. EENT: Throat is clear Reports pain when swallowing. Derm: Skin is pink, warm \T\ dry. Musculoskeletal: No deficits noted. Vital Signs: 21:41 BP 146 / 93; Pulse 97; Resp 16; Temp 98.5(O); Pulse Ox 99% ; Weight 81.65 kg (R); lp1 Height 5 ft. 4 in. (162.56 cm); Pain 5/10; 21:41 Body Mass Index 30.90 (81.65 kg, 162.56 cm) lp1 ED Course: 20:02 Patient arrived in ED. bp1 21:41 Triage completed. lp1 21:41 Arm band placed on right wrist. lp1 22:30 Patient has correct armband on for positive identification. lp1 22:57 Leo Salas PA is PHCP. cp 22:58 Delmer Mcneil MD is Attending Physician. cp 04/28 00:00 No provider procedures requiring assistance completed. Patient did not have IV access lp1 during this emergency room visit. 00:23 XRAY Chest Pa And Lat (2 Views) In Process Unspecified. EDMS Administered Medications: No medications were administered Outcome: 00:17 Discharge ordered by . cp 00:40 Discharged to home ambulatory, with significant other. lp1 00:40 Condition: good 00:40 Discharge instructions given to patient, Instructed on discharge instructions, follow up and referral plans. medication usage, Demonstrated understanding of instructions, follow-up care, medications, Prescriptions given X 2. 00:44 Patient left the ED. bs2 Signatures: Dispatcher [employer] EDMS Sandhya Chaudhary RN RN lp1 Leo Salas PA PA cp Jina Vega bp1 Latosha Keith RN RN bs2 Corrections: (The following items were deleted from the chart) 07:30 07:30 No provider procedures requiring assistance completed. lp1 lp1 :30 Patient did not have IV access during this emergency room visit. lp1 lp1
--- NOTE | 2021-04-28 00:19 | EDPHYS ---
Physician Documentation [facility] Name: Michelle Yeh Age: 45 yrs Sex: Female : 1975 Arrival Date: 04/27/2021 Time: 20:02 Bed 20 Private MD: ED Physician Delmer Mcneil HPI: 04/27 23:30 This 45 yrs old Female presents to ER via Ambulatory with complaints of Cough, cp Fever, Sore Throat. 23:30 The patient or guardian reports cough, that is intermittent, with productive sputum. cp 23:30 Onset: The symptoms/episode began/occurred 5 day(s) ago. Associated signs and symptoms: cp Pertinent positives: sore throat, chills, Pertinent negatives: chest pain, diarrhea, vomiting. 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 - Social history:: Smoking status: Patient denies any tobacco usage or history of. ROS: 23:35 Constitutional: Positive for chills, Negative for fever, poor PO intake. cp 23:35 Eyes: Negative for injury, pain, redness, and discharge. cp 23:35 ENT: Positive for sore throat, Negative for drainage from ear(s), ear pain, difficulty swallowing, difficulty handling secretions. 23:35 Cardiovascular: Negative for chest pain, palpitations. 23:35 Respiratory: Positive for cough, Negative for shortness of breath, wheezing. 23:35 Abdomen/GI: Negative for abdominal pain, nausea, vomiting, and diarrhea. 23:35 : Negative for urinary symptoms. 23:35 Neuro: Negative for altered mental status, headache, weakness. 23:35 All other systems are negative. Exam: 23:42 Constitutional: The patient appears in no acute distress, alert, awake, non-toxic, well cp developed, well nourished. 23:42 Head/Face: Normocephalic, atraumatic. cp 23:42 Eyes: Periorbital structures: appear normal, Conjunctiva: normal, no exudate, no injection, Sclera: no appreciated abnormality, Lids and lashes: appear normal, bilaterally. 23:42 ENT: External ear(s): are unremarkable, Ear canal(s): are normal, clear, TM's: dullness, bilaterally, Nose: is normal, Mouth: Lips: moist, Oral mucosa: pink and intact, moist, Posterior pharynx: Airway: no evidence of obstruction, patent, Tonsils: are normal in appearance. 23:42 Neck: ROM/movement: is normal, is supple, without pain, no range of motions limitations, no meningismus. 23:42 Chest/axilla: Inspection: normal, Palpation: is normal, no crepitus, no tenderness. 23:42 Cardiovascular: Rate: normal, Rhythm: regular. 23:42 Respiratory: the patient does not display signs of respiratory distress, Respirations: normal, no use of accessory muscles, no retractions, labored breathing, is not present, Breath sounds: bronchial sounds, that are mild, are heard in the right posterior middle lobe and right posterior lower lobe, decreased breath sounds, are not appreciated, stridor, is not appreciated, wheezing: is not appreciated. 23:42 Abdomen/GI: Exam negative for discomfort, distension, guarding, Inspection: abdomen appears normal. 23:42 Back: pain, is absent, ROM is normal. Vital Signs: 21:41 BP 146 / 93; Pulse 97; Resp 16; Temp 98.5(O); Pulse Ox 99% ; Weight 81.65 kg (R); lp1 Height 5 ft. 4 in. (162.56 cm); Pain 5/10; 21:41 Body Mass Index 30.90 (81.65 kg, 162.56 cm) lp1 MDM: 23:12 Patient medically screened. cp 23:30 Differential Diagnosis: Bronchitis Influenza Otitis Media Viral Syndrome Pneumonia. cp 04/28 00:16 Test interpretation: by ED physician or midlevel provider: chest xray shows concern for cp infiltrate right lower lobe. 00:17 Data reviewed: vital signs, nurses notes, lab test result(s), radiologic studies, plain cp films. 00:17 Counseling: I had a detailed discussion with the patient and/or guardian regarding: the cp historical points, exam findings, and any diagnostic results supporting the discharge/admit diagnosis, lab results, radiology results, the need for outpatient follow up, a family practitioner, to return to the emergency department if symptoms worsen or persist or if there are any questions or concerns that arise at home. ED course: VSS. Patient appears non-toxic and no signs of respiratory distress. Will discharge to home for continued monitoring. 04/27 21:46 Order name: Strep lp1 04/27 21:46 Order name: Influenza Screen (A EDMS 04/27 22:18 Order name: Throat Culture EDMS 04/28 00:09 Order name: SARS-COV-2 RT PCR EDMS 04/27 23:36 Order name: XRAY Chest Pa And Lat (2 Views) cp Administered Medications: No medications were administered Disposition: 05:58 Co-signature as Attending Physician, Delmer Mcneil MD. [email or web address] Disposition Summary: 04/28/21 00:17 Discharge Ordered Location: Home cp Problem: new cp Symptoms: are unchanged cp Condition: Stable cp Diagnosis - Other pneumonia, unspecified organism - right lower lobe cp Followup: cp - With: Private Physician - When: 2 - 3 days - Reason: Worsening of condition Discharge Instructions: - Discharge Summary Sheet cp - Community-Acquired Pneumonia, Adult cp Forms: - Medication Reconciliation Form cp - Work release form cp - Thank You Letter cp - Antibiotic Education cp - Prescription Opioid Use cp Prescriptions: - levofloxacin 500 mg Oral Tablet - take 1 tablet by ORAL route once daily for 7 days; 7 tablet; Refills: 0, cp Product Selection Permitted - albuterol sulfate 90 mcg/actuation Inhalation HFA aerosol inhaler - inhale 2 puff by INHALATION route every 4-6 hours; 1 Inhaler; Refills: 0, cp Product Selection Permitted Signatures: Dispatcher [employer] EDTN Sandhya Chaudhary RN RN lp1 Leo Salas PA PA cp Delmer Mcneil MD MD [email or web address] Corrections: (The following items were deleted from the chart) 04/27 23:12 21:46 Influenza Screen (A \T\ B)+[id number].BRZ ordered. EDTN EDTN
[2021-04-28 00:54] VITALS: BP 146/93; TEMP 98.5; O2SAT 99
--- NOTE | 2021-04-28 07:51 | RAD REPORT ---
EXAM DESCRIPTION: RAD - Chest Pa And Lat (2 Views) - 04/28/2021 12:23 am CLINICAL HISTORY: COUGH COMPARISON: Chest Single View dated 05/05/2020; Chest Pa And Lat (2 Views) dated 11/10/2017 FINDINGS: No evidence of edema or pneumonia. The heart size is within normal limits.No acute osseous abnormality. No significant pleural effusions or pneumothorax. IMPRESSION: No acute cardiopulmonary disease.
== END 2021-04-28 00:44 | disposition home or self-care (01) ==
LOC: ER 19:58
DX: J18.8 Other pneumonia, unspecified organism (principal); J45.909 Unspecified asthma, uncomplicated; Z20.822 Contact with and (suspected) exposure to COVID-19; Z88.3 Allergy status to other anti-infective agents; Z88.6 Allergy status to analgesic agent; Z88.8 Allergy status to other drugs, medicaments and biological substances
CPT/HCPCS: 87070; 87081; 87804 ×2; 71046; 99283; U0003

== ENCOUNTER 2022-09-11 18:21 | Emergency (ER) | payer BC ==
--- OUTSIDE RECORDS SUMMARY | 2022-09-11 18:26 | XMS REPORT | Continuity of Care Document ---
:1975 Author Organization [facility] t Address [address] [place] [address] Care Team Providers Name Role Phone HANK MONTES Attending Clinician Unavailable Simon HARDY, Hank Whatley Attending Clinician [phone] JOHN MORTON Attending Clinician Unavailable John Morton MD Attending Clinician Mary Ellen Lewis MD Attending Clinician Tomasz Linares MD Attending Clinician Florence HARDY, Annita Ball Attending Clinician [phone] HANK MONTES Admitting Clinician Unavailable JOHN MORTON Admitting Clinician Unavailable Payers Payer Name Policy Type Policy Number Effective Date Expiration Date S ourhung AETNA [facility] [id number] 2020 00:00:00 ACCESS BCBS OS [id number] 2021 00:00:00 POS/PPO/EPO Problems Condition Condition Condition Status Onset Resolution Last Treating Co mments Source Name Details Category Date Date Treatment Clinician Date Missed ab Missed ab Disease [facility] Allergies, Adverse Reactions, Alerts Allergy Allergy Status Severity Reaction(s) Onset Inactive Treating Comm ents Source Name Type Date Date Clinician CLARITHR Allergy Active 2021-0 [facility] OMYCIN 5-04 00:00: 00 Ibuprofe Propensi Active [facility] adverse 00:00: Medical reaction 00 Center s Clarithr Propensi Active [facility]- [facility] adverse 00:00: Medical reaction 00 Center s Shrimp Propensi Active Anaphylaxis [facility]05 [facility] adverse 00:00: Medical reaction 00 Center s SHRIMP Allergy Active High Anaphylaxis [facility] 5- 00:00: 00 IBUPROFE Allergy Active [facility] N - 00:00: 00 NO KNOWN Allergy Active [facility] Family History Family Member Diagnosis Comments Start Date Stop Date Source Natural father [facility] Natural mother [facility] Social History Social Habit Start Date Stop Date Quantity Comments Source History SDOH [facility] Alcohol Std Drinks Medica l Center History SDOH [facility] Alcohol Binge Medical Radha ter History SDOH [facility] Alcohol Comment Medical C enter Alcohol intake 2021-09-25 2021-09-[address] [facility] 00:00:00 00:00:00 non-drinker Medical Cente r (finding) History SDOH 2021-02-05 2021-02-[address] [facility] Alcohol Frequency 00:00:00 00:00:00 [facility] Tobacco use and 2021-02-05 2021-02-[address] [facility] k[facility] exposure 00:00:00 00:00:00 [facility] Sex Assigned At [address] [address] [facility] 00:00:00 00:00:00 [facility] Smoking Status Start Date Stop Date Source Never sm[facility] Medications Ordered Filled Start Stop Current Ordering Indication Dosage Frequency Signature Comments Components Source Medication Medication Date Date Medication? Clinician (SIG) Name Name montelukast 2020-10 Yes Take by [facility] sodium 2-23 [facility]. [facility] ([place] 08:11: Medica l T ORAL) 02 [place] montelukast 2020-10 Yes Take by [facility] sodium 2-23 [facility]. [facility] (MONTEL[place]AS 08:11: Medica l T ORAL) 02 [place] montelukast 2020-10 Yes Take by [facility] sodium 2-23 [facility]. [facility] (MONTELUKAS 08:11: Medica l T ORAL) 02 Center acetaminoph 2021- No 650mg Take [address] en 5-18 05-13 tablets [facility] (TYLENOL) 00:00: 23:59 (650 mg Medi enrique 325 MG 00 :00 total) by Center tablet mouth every 6 (six) hours as needed for Pain for up to 360 days. acetaminoph 2021- No 650mg Take [address] [facility] 5-18 05-13 tablets [facility] (TYLENOL) 00:00: 23:59 (650 mg Medi enrique 325 MG 00 :00 total) by Center tablet mouth every 6 (six) hours as needed for Pain for up to 360 days. acetaminoph 2021- No 650mg Take [address] [facility] 5-18 05-13 tablets [facility] (TYLENOL) 00:00: 23:59 (650 mg Medi enrique 325 MG 00 :00 total) by Center tablet mouth every 6 (six) hours as needed for Pain for up to 360 days. Symbicort Yes 2{puff} Q.5D Inhale [address] 160-4.5 4-15 puffs by [facility] mcg/actuati 00:00: mouth via M edical on inhaler 00 inhaler 2 Cent er (two) times daily. Symbicort Yes 2{puff} Q.5D Inhale [address] 160-4.5 4-15 puffs by [facility]ukes mcg/actuati 00:00: mouth via M edical on inhaler 00 inhaler 2 Cent er (two) times daily. Symbicort Yes 2{puff} Q.5D Inhale [address] 160-4.5 4-15 puffs by [facility]ukes mcg/actuati 00:00: mouth via M edical on inhaler 00 inhaler 2 Cent er (two) times daily. promethazin 2020- No GIVE [address] [facility] e-dextromet 4-15 05-12 TEASPOONFU L ukes horphan 00:00: 00:00 L BY MOUTH Med ical (PROMETHAZI 00 :00 FOUR TIMES Ce nter NE-DM) DAILY 6.25-15 NEEDED FOR mg/5 mL COUGH syrup promethazin 2020- No GIVE [address] [facility] e-dextromet 01-17 TEASPOONFU L ukes horphan 00:00: 00:00 L BY MOUTH Med ical (PROMETHAZI 00 :00 FOUR TIMES Ce nter NE-DM) DAILY 6.25-15 NEEDED FOR mg/5 mL COUGH syrup montelukast 2020- No 10mg QD Take [address] (SINGULAIR) 11-13 by mouth Melly es 10 mg 00:00: 00:00 daily. Medical tablet 00 :00 [place] montelukast No 10mg QD Take [address] (SINGULAIR) 11-13 by mouth Melly es 10 mg 00:00: 00:00 daily. Medical tablet 00 :00 Center Immunizations Ordered Immunization Filled Immunization Date Status Commen ts Source Name Name Covid-19 Vaccine 2020-11-[address] [facility] Mrna(pf) (Moderna) 00:00:00 [facility] Covid-19 Vaccine 2020-11-[address] [facility] Mrna(pf) (Moderna) 00:00:00 [facility] Covid-19 Vaccine 2020-11-[address] [facility] MRNA (PF) 18yr+ 00:00:00 Medical C enter (Moderna)([id number]) Covid-19 Vaccine 2020-10-[address] [facility] Mrna(pf) (Moderna) 00:[facility] Covid-19 Vaccine 2020-10-[address] [facility] Mrna(pf) (Moderna) 00:00:00 [facility] Covid-19 Vaccine 2020-10-[address] [facility] MRNA (PF) 18yr+ 00:00:00 Medical C enter (Moderna)([id number]) Vital Signs Vital Name Observation Time Observation Value Comments Source HEIGHT 2021-02-19 06:38:00 162.6 cm WEIGHT 2021-02-19 06:38:00 81.647 kg HEIGHT 2021-02-14 08:24:00 162.6 cm WEIGHT 2021-02-14 08:24:00 81.647 kg HEIGHT 2021-09-25 09:07:00 162.6 cm WEIGHT 2021-09-25 09:07:00 74.844 kg HEIGHT 2021-09-25 09:07:00 162.6 cm WEIGHT 2021-09-25 09:07:00 74.844 kg HEIGHT 2021-09-25 09:07:00 162.6 cm WEIGHT 2021-09-25 09:07:00 74.844 kg HEIGHT 2021-06-26 08:54:00 162.6 cm WEIGHT 2021-06-26 08:54:00 82.01 kg HEIGHT 2021-03-15 08:38:00 162.6 cm WEIGHT 2021-03-15 08:38:00 81.647 kg HEIGHT 2021-02-19 06:38:00 162.6 cm WEIGHT 2021-02-19 06:38:00 81.647 kg HEIGHT 2021-02-14 08:24:00 162.6 cm WEIGHT 2021-02-14 08:24:00 81.647 kg HEIGHT 2021-02-13 10:59:00 162.6 cm WEIGHT 2021-02-13 10:59:00 81.647 kg WEIGHT 2021-02-05 14:48:00 81.647 kg HEIGHT 2021-02-05 14:48:00 162.6 cm Systolic blood 2021-09-25 09:07:00 145 mm[Hg] [facility] Diastolic blood 2021-09-25 09:07:00 79 mm[Hg] [facility] Heart rate 2021-09-25 09:07:00 79 /min [facility] Body temperature 2021-09-25 09:07:00 36.22 Sharri [facility] Respiratory rate 2021-09-25 09:07:00 18 /min [facility] Body height 2021-09-25 09:07:00 162.6 cm [facility] Body weight 2021-09-25 09:07:00 74.844 kg [facility] BMI 2021-09-25 09:07:00 28.32 kg/m2 [facility] Oxygen saturation in 2021-09-25 09:07:00 99 /min [facility] Arterial blood by Medical Ce nter Pulse oximetry Procedures Procedure Date / Time Performed Performing Clinician Sourc e HC MAMMO DIAG UNI & CAD 2021-09-25 10:41:00 Mk Hudson [facility] TISSUE EXAM 2021-09-25 10:05:[address] [facility] US GUIDED BREAST BIOPSY 2021-09-25 09:53:00 [facility] US BREAST RIGHT 2021-09-04 13:46:00 Hank Montes [facility] s [facility] MM DIGITAL MAMMO 2021-09-04 13:27:00 Hank Montes CHIk es DIAGNOSTIC WITH [facility] ter RIGHT MM DIGITAL MAMMO SCREEN 2021-06-26 10:46:00 Hank Montes [facility]I WITH [facility] BILATERAL [facility] er PAP IG CT-NG RFX HPV 2021-06-26 00:00:00 Provider, Bandar CHOWDHURY I [facility] TISSUE EXAM 2021-02-19 07:47:00 Hank Montes [facility] s [facility] DILATATION & 2021-02-19 07:33:00 Hank Montes CHI s CURETTAGE,EVACUATION/SUC [facility] TION CBC W/PLT COUNT & AUTO 2021-02-14 07:34:00 Hank Montes [facility] DIFFERENTIAL [facility] TYPE AND SCREEN, 2021-02-14 07:34:[address] [facility] AUTOMATED [facility] CBC W/PLT COUNT & AUTO 2021-02-14 07:34:00 Hank Montes [facility] DIFFERENTIAL [facility] SARS-COV2/RT-PCR ([facility] & 2021-02-14 07:34:00 Hank Montes [facility] REF LABS) [facility] US OB TRANSVAGINAL 2021-02-13 11:12:00 Hank Montes [facility] ABORH, MANUAL 2021-02-05 15:44:[address] [facility] HCG, QUANTITATIVE, 2021-02-05 15:44:00 Hank Montes [facility]I [facility] CBC W/PLT COUNT & AUTO 2021-02-05 15:44:[address] [facility] DIFFERENTIAL [facility] ANTIBODY SCREEN ([facility] 2021-02-05 15:44:[address] [facility]) [facility] US OB TRANSVAGINAL 2021-02-05 07:58:00 Hank Montes [facility] Plan of Care Planned Activity Planned Date Details Comments Source Future Scheduled 2026-06-26 Screening for malignant [facility] Test 00:00:00 neoplasm of cervix Medical C enter (procedure) [code = 645850521] Future Scheduled 2026-06-26 Screening for malignant [facility] Test 00:00:00 neoplasm of cervix Medical C enter (procedure) [code = 733398799] Future Scheduled 2026-06-26 Screening for malignant [facility] Test 00:00:00 neoplasm of cervix Medical C enter (procedure) [code = 967124340] Future Scheduled 2022-09-[address] [facility] Test 00:00:00 Counseling and Medical Cente r Screening (12+) [code = Tobacco Cessation Counseling and Screening (12+)] Future Scheduled 2022-06-05 INFLUENZA VACCINE (#1) [facility] 00:00:00 [code = INFLUENZA Medical Ce nter VACCINE (#1)] Future Scheduled 2021-10-[address] [facility] Test 00:00:00 (12+) [code = Medical Center DEPRESSION SCREENING (12+)] Future Scheduled 2021-10-[address] [facility] Test 00:00:00 (12+) [code = Medical Center DEPRESSION SCREENING (12+)] Future Scheduled 2021-10-[address] [facility] Test 00:00:00 (12+) [code = Medical Center DEPRESSION SCREENING (12+)] Future Scheduled 2021 Lipid panel (procedure) [facility] Test 00:00:00 [code = 79966052] Medical Ce nter Future Scheduled 2021 Lipid panel (procedure) [facility] Test 00:00:00 [code = 57167133] Medical Ce nter Future Scheduled 2021 Lipid panel (procedure) [facility] Test 00:00:00 [code = 94262435] Medical Ce nter Future Scheduled 2021-06-05 INFLUENZA VACCINE (#1) [facility] 00:00:00 [code = INFLUENZA Medical Ce nter VACCINE (#1)] Future Scheduled 2021-06-05 INFLUENZA VACCINE (#1) [facility] 00:00:00 [code = INFLUENZA Medical Ce nter VACCINE (#1)] Future Scheduled 2021-04-08 COVID-19 VACCINE (3 - [facility] 00:00:00 Booster for Moderna Medical Center series) [code = COVID-19 VACCINE (3 - Booster for Moderna series)] Future Scheduled 1995 DTAP/TDAP/TD VACCINES [facility] 00:00:00 (1 - Tdap) [code = Medical C enter DTAP/TDAP/TD VACCINES (1 - Tdap)] Future Scheduled 1995 DTAP/TDAP/TD VACCINES [facility] 00:00:00 (1 - Tdap) [code = Medical C enter DTAP/TDAP/TD VACCINES (1 - Tdap)] Future Scheduled 1995 DTAP/TDAP/TD VACCINES [facility] 00:00:00 (1 - Tdap) [code = Medical C enter DTAP/TDAP/TD VACCINES (1 - Tdap)] Future Scheduled 1994 HEPATITIS C SCREENING [facility] 00:00:00 [code = HEPATITIS C Medical Center SCREENING] Future Scheduled 1994 HEPATITIS C SCREENING [facility] 00:00:00 [code = HEPATITIS C Medical Center SCREENING] Future Scheduled 1994 HEPATITIS C SCRE[facility]ING [facility] 00:00:00 [code = HEPATITIS C Medical Center SCREENING] Future Scheduled 1976 Screening for malignant [facility] Test 00:00:00 neoplasm of colon Medical Ce nter (procedure) [code = 962941036] Future Scheduled 1976 Screening for malignant [facility] Test 00:00:00 neoplasm of colon Medical Ce nter (procedure) [code = 491829816] Future Scheduled 1976 CT Colonography (combo) [facility] Test 00:00:00 [code = CT Colonography [facility] (combo)] Future Scheduled 1976 Screening for malignant [facility] Test 00:00:00 neoplasm of colon Medical Ce nter (procedure) [code = 094015161] Future Scheduled 1976 Screening for malignant [facility] Test 00:00:00 neoplasm of colon Medical Ce nter (procedure) [code = 409162832] Future Scheduled 1976 Screening for malignant [facility] Test 00:00:00 neoplasm of colon Medical Ce nter (procedure) [code = 605439786] Future Scheduled 1976 Screening for malignant [facility] Test 00:00:00 neoplasm of colon Medical Ce nter (procedure) [code = 589621945] Future Scheduled 1975 Sigmoidoscopy [code = [facility] Test 00:00:00 Sigmoidoscopy] Medical Cente r Encounters Start End Encounter Admission Attending Care Care Encounter Source Date/Time Date/Time Type Type Clinicians Facility Department ID 2021-07-13 [id number] [facility] 19:39:34 [facility] 2022-06-27 2022-06-27 Outpatient VALDEMAR MONTES [facility] [id number] [facility] 00:[facility] 00:00[facility]00 [facility] 2022-06-27 2022-06-[address] [facility] [id number] 00:[facility] 00:00:00 [facility] 2022-06-25 2022-06-[address] [facility] [id number] 00:[facility]00 00:00:00 [facility] 2021-09-25 2021-09-25 Outpatient VALDEMAR MORTON [facility] Inter Rad [id number] [facility] 08:58:47 14:00:00 JOHN 2021-09-25 2021-09-25 [facility], [facility] [id number] 08:50:00 14:00:00 Encounter [facility] 2021-09-25 2021-09-25 [facility], [facility] [id number] 08:50:00 14:00:00 Encounter [facility] 2021-09-05 2021-09-[address] [facility] [id number] 00:00:00 00:00:00 [facility] 2021-09-04 2021-09-[address] [facility] [id number] 12:36:07 23:59:00 Encounter [facility] 2021-09-04 2021-09-04 Outpatient VALDEMAR MONTES [facility] [id number] [facility] 12:36:07 23:59:00 [facility] 2021-09-04 2021-09-[address] [facility] [id number] 12:35:56 12:35:56 Encounter [facility] 2021-09-04 2021-09-04 Outpatient VALDEMAR MONTES [facility] [id number] [facility] 12:35:56 12:35:56 [facility] 2021-09-04 2021-09-[address] [facility] [id number] 00:00:00 00:00:00 Only [facility] 2021-09-04 2021-09-[address] [facility] [id number] 00:00[facility]00 00:00:00 [facility] 2021-09-03 2021-09-[address] [facility] [id number] 00:00:00 00:00:00 Orders [facility] 2021-07-04 2021-07-[address] [facility] [id number] 00:00[facility]00 00:00:00 [facility] 2021-06-27 2021-06-[address] [facility] [id number] 00:00:00 00:00:00 Only [facility] 2021-06-26 2021-06-[address] [facility] [id number] 09:50:14 23:59:00 Encounter [facility] 2021-06-26 2021-06-[address] [facility] [id number] 08:39:16 09:27:30 Visit [facility] 2021-06-26 2021-06-26 Outpatient VALDEMAR MONTES, [facility] [id number] [facility] 00:00:00 00:00:00 [facility] 2021-06-26 2021-06-[address] [facility] [id number] 00:00:00 00:00:00 [facility] 2021-06-26 2021-06-26 Travel [facility] [id number] [facility] 00:[facility] 00:00:00 [facility] 2021-06-25 2021-06-[address] [facility] [id number] 00:00:00 00:00:00 Orders [facility] 2021-06-25 2021-06-[address] [facility] [id number] 00:00:00 00:00:00 [facility] 2021-03-15 2021-03-15 Video - Simon [facility] [id number] 08:34:10 09:24:58 [facility] 2021-03-15 2021-03-[address] [facility] [id number] 00:00:00 00:00:00 [facility] 2021-03-15 2021-03-15 Travel [facility] [id number] [facility] 00:[facility]00 00:00:00 [facility] 2021-02-19 2021-02-19 [facility] VALDEMAR Montes [facility] [id number] 05:49:00 08:50:00 Encounter [facility] 2021-02-19 2021-02-19 [id number] 07:30:00 08:30:00 [facility] 2021-02-19 2021-02-[address] Ellen Lewis [facility] [id number] 07:33:00 08:00:00 Event Tomasz Linares [facility] 2021-02-14 2021-02-14 [facility] [id number] 07:33:29 23:59:00 Encounter [facility] 2021-02-14 2021-02-14 Outpatient [facility] [id number] [facility] 00:00:00 00:00:00 2021-02-14 2021-02-14 Travel [facility] [id number] [facility] 00:[facility]00 00:00:00 [facility] 2021-02-13 2021-02-[address] [facility] [id number] 10:22:41 11:25:42 Visit [facility] 2021-02-13 2021-02-13 Outpatient [facility] [id number] 00:00:00 00:00:00 [facility] 2021-02-13 2021-02-[address] [facility] [id number] 00:00:00 00:00:00 [facility] 2021-02-13 2021-02-13 Travel [facility] [id number] [facility] 00:00:00 00:00:00 [facility] 2021-02-12 2021-02-12 Telephone [place], [facility] [id number] 00:00:00 00:00:00 Annita [facility] 2021-02-05 2021-02-05 Office Simon, [facility] [id number] 14:23:05 15:35:19 Visit [facility] 2021-02-05 2021-02-05 Outpatient [facility] [id number] 00:00:00 00:00:00 [facility] 2020-05-23 2020-05-23 Outpatient [facility] PDPFEJY PZS [facility] 00:00:00 00:00:00 [id number] Results Test Description Test Time Test Comments Results Result [facility] Comments MM, U/S, BIOPSY, Reason for BREAST, RIGHT 5 Exam:->1.3cm 10:48:00 right [facility] : 1975 Sex: F Addendum BeginsN#: [id number]: 10/09/2021 Mk Hudson M.D. Pathology results show benign fibroglandular tissue, which is concordant with the imaging findings as well as the findings at the time of biopsy. A 6 month follow up right breast mammogram and possible sonogram are recommended. Addendum EndsMRN#: [id number] - MM, U/S, BIOPSY, BREAST, RIGHT ULTRASOUND GUIDED BIOPSY: 09/25/2021LINICAL: Pt recieved bx 9:00 4cfn. BNG. PATIENT CONSENT: The procedure, risks and benefits, alternatives were discussed with the patient. Informed consent was obtained. A time-out was performed. Comparison is made to exams dated: 06/26/2021 mammogram, 09/04/2021 mammogram, and 09/04/2021 ultrasound - [facility]. Written informed consent was obtained after discussing risks, benefits, and alternatives of the procedure with the patient. Patent was brought to the ultrasound suite and placed in supine position. Pre-procedure ultrasound demonstrates the target lesion in the 9:00 position of the right breast. Overlying skin was prepared in the usual sterile fashion. Planned biopsy tract was anesthetized with dilute Lidocaine for local anesthesia. Using sonographic guidance, a total of three 14 gauge core biopsy specimens were obtained. The lesion completely decompressed, suggesting a complicated cyst. No visible solid component is identified status post biopsy. A marker clip was placed at the site of biopsy. The patient tolerated the procedure well, there were no complications. IMPRESSION: ULTRASOUND GUIDED BIOPSYTechnically successful sonographic guided biopsy of lesion in the 9:00 position of the right breast. The lesion completely decompressed, suggesting a complicated cyst. Mk Hudson M.D. km/:09/25/2021 12:22:21 Braid Maker: Jeanette Kidd [facility] [id number] UE EXAM 2021-09-05 Surgical Pathology Report 8 Case: [id number] 08:53:54 Authorizing Provider: Hank Montes, Collected: 09/25/2021 10:05 AM Ordering Location: [facility] Diagnostic Imaging Received: 09/25/2021 10:29 AM Pathologist: Lincoln Rosas MD Specimen: Breast, Right, breast biopsy BREAST, RIGHT, CORE BIOPSY: - BENIGN GLANDULAR PROLIFERATION (SEE COMMENT). - NO MALIGNANCY IDENTIFIED. Signing Pathologist Direct Phone Line: [phone] y signed by Lincoln Rosas MD on 10/01/2021 at 8:53 AMThe differential diagnosis is tubular adenoma of the breast versus a papilloma. Based on the morphology in the core biopsy, a tubular adenoma is favored. No malignancy is seen.JK/[id number], [id number], [id number] mass, right Breast The specimen received in formalin in a container labeled with the patient's name and designated "breast, R" consists of multiple cores of yellow soft tissue with the largest core measuring 1.2 x 0.2 x 0.2 cm. The specimen is entirely submitted in cassette A1.The specimen was placed in formalin at 10:15 on September 25, 2021. The specimen was taken out of formalin at 7:30 p.m. on September 25, 2021. ZULEYMA/reji Performed The interpretation of this case included the use of immunohistochemistry or special stains.Control Slides Examined: In-house known positive controls were evaluated along with the test tissue. These control slides run alongside of the patients sample show appropriate staining. Internal positive and negative controls when available are evaluated Immunohistochemistry technical testing was performed at [facility], Pathology Laboratory where it was developed and its performance characteristics were determined. It has not been cleared or approved by the U.S. Food and Drug Administration. The FDA has determined that such clearance or approval is not necessary. The test is used for clinical purposes. It should not be regarded as investigational or for research. This laboratory is certified under the Clinical Laboratory Improvement Amendments of 1988 (CLIA-88) as qualified to perform high complexity clinical laboratory testing.p63: Highlights intact myoepithelial cell layerSmooth muscle myosin: Highlights intact myoepithelial cell layerSt. [facility], Department of Pathology, [address] [place] [address], [facility], Department of Pathology, [address] [place] [address], [facility], [address] [place] [address], MM, DIGITAL, 2021-09-05 UNILATERAL, 2 CONFER JULIENNE, 11:18:00 [facility] - [facility]AM[facility], RIGHT MEDICAL CENTERName: INCLUDING CAD ELIZABETH MCLAIN JR : 1975 Sex: F #[id number] - MM, DIGITAL, UNILATERAL, CONFER JULIENNE, MAMMO, RIGHT INCLUDING CAD UNILATERAL RIGHT DIGITAL PROBLEM SOLVING MAMMOGRAM WITH CAD POST-PROCEDURE IMAGING FOR MARKER PLACEMENT: 09/25/2021omparison is made to exams dated: 09/04/2021 ultrasound, 09/04/2021 mammogram, and 06/26/2021 mammogram - [facility]. The tissue of right breast is heterogeneously dense. This may lower the sensitivity of mammography. Current study was also evaluated with a Computer Aided Detection (CAD) system. Post procedure mammogram demonstrates the postbiopsy clip in the approximate 9:00 position of the right breast. The biopsied nodule has resolved mammographically, suggesting resolution of a complicated cyst. IMPRESSION: POST PROCEDURE MAMMOGRAM FOR MARKER PLACEMENTPost procedure mammogram as described above. Mk Hudson M.D. km/:09/25/2021 11:18:26 Braid Maker: RT Raysa(R)(M), [facility] Mammogram BI-RADS: Post-procedure mammogram for marker placement 24282 , U/S, BREAST, Diagnostic UNILATERAL, 1 workup per RIGHT 14:38:00 radiologist?[facility]abnormal ELIZABETH MCLAIN : mammogram 1975 Sex: F #[id number] - MM, U/S, BREAST, UNILATERAL, RIGHT LIMITED ULTRASOUND OF RIGHT BREAST AND AXILLA: 09/04/2021LINICAL: Pt. denies any pain or changes. Dr. burrells biopsy. G. Comparison is made to exams dated: 09/04/2021 mammogram and 06/26/2021 mammogram - [facility]. Color flow ultrasound of the right breast 9-12 o'clock, and axilla regions was performed. Sorenson scale images of the real-time examination were reviewed. There is a 1.3 cm lobulated mass with a circumscribed margin in the right breast at 9 o'clock middle depth 4 cm from the nipple. This lobulated mass is hypoechoic. This correlates with mammography findings. There also is a benign 4 mm oval cyst in the right breast at 12 o'clock middle depth. This oval cyst is anechoic. This correlates with mammography findings. IMPRESSION: SUSPICIOUS OF MALIGNANCY The 1.3 cm lobulated mass in the right breast at 9 o'clock is at a low suspicion for malignancy. An ultrasound guided biopsy is recommended. The 4 mm oval cyst in the right breast at 12 o'clock middle depth is benign. A phone call was made to the physician's office and the results were reviewed with the patient. John Morton M.D. cct/:09/04/2021 14:38:38 Biopsy Required BiRad 4-5 Ultrasound BI-RADS: 4a Low suspicion for malignancy 77409 , DIGITAL Diagnostic MAMMO, 1 workup per DIAGNOSTIC, WITH 14:36:00 radiologist?->Y [facility], RIGHT es Reason for MEDICAL CENTERName: INCLUDING CAD Exam:->abnormal ELIZABETH MCLAIN : mammogram 1975 Sex: F #[id number] - MM, DIGITAL MAMMO, DIAGNOSTIC, WITH [place], RIGHT INCLUDING CAD UNILATERAL RIGHT DIGITAL DIAGNOSTIC MAMMOGRAM 3D/2D WITH CAD: 09/04/2021omparison is made to exams dated: 06/26/2021 mammogram and 09/04/2021 ultrasound - [facility]. Current study contains 3 films. The tissue of right breast is heterogeneously dense. This may lower the sensitivity of mammography. Tomosynthesis 3D imaging of the breast was also performed. Current study was also evaluated with a Computer Aided Detection (CAD) system. There is a 1.3 cm mass with a macrolobulated margin in the right breast at 9 o'clock anterior depth. This is seen in additional views. This correlates with ultrasound findings. There also is a 4 mm benign oval cyst in the right breast at 12 o'clock anterior depth. This correlates with ultrasound findings. No other significant masses or calcifications are seen in the breast. IMPRESSION: SUSPICIOUS OF MALIGNANCYUltrasound of the right breast is to follow. Please see report. The 1.3 cm mass in the right breast at 9 o'clock anterior depth is at a low suspicion for malignancy. An ultrasound guided biopsy is recommended. The 4 mm oval cyst in the right breast at 12 o'clock anterior depth is benign. A phone call was made to the physician's office and the results were reviewed with the patient. John Morton M.D. cct/:09/04/2021 14:36:01 Biopsy Required BiRad 4-5 Mammogram BI-RADS: 4a Low suspicion for malignancy , DIGITAL, 2021-06-06 Diagnostic MAMMO, 2 workup per SCREENING, WITH 11:17:00 radiologist?->Y [facility], BILATERAL esReason for [facility] Exam:->ELIZABETH Pierre : woman 1975 Sex: F #[id number] - MM, DIGITAL, MAMMO, SCREENING, WITH [place], BILATERAL INCLUDING CAD BILATERAL DIGITAL SCREENING MAMMOGRAM 3D/2D WITH CAD: 06/26/2021No prior exams were available for comparison. The tissue of both breasts is heterogeneously dense. This may lower the sensitivity of mammography. Tomosynthesis 3D imaging of the breast was also performed. Current study was also evaluated with a Computer Aided Detection (CAD) system. There is a lobulated mass in the approximate 9:00 position of the right breast, middle depth. This measures approximately 1 cm in size. Additional scattered circumscribed nodules are visualized within the right breast, all of which measure less than 1 cm in size. No architectural distortion is seen. No suspicious calcifications are identified. The left breast is mammographically unremarkable. IMPRESSION: INCOMPLETE: NEEDS ADDITIONAL IMAGING EVALUATIONRecommend further evaluation with diagnostic right breast mammogram views and right breast ultrasound. Mk Hudson M.D. km/:06/26/2021 11:17:30 Additional Imaging Needed BiRad 0 Mammogram BI-RADS: [address]-NG RFX HPV ASCU 2021-06-26 00:00:00 Test Item Value Reference Range Interpretation Comme nts Pap (test code = 31015-6) Negative for intraephithelial lesion or m alignancy [facility] RFX HPV [id number] 00:00:00 Test Item Value Reference Range Interpretation Comments Pap (test code = [place] [address]-9) intraephithelial lesion or malignancy [facility] HospitalTISSUE [id number] 10:48:00Surgical Pathology Report Case: [id number] Authorizing Provider: Hank Montes, Collected: 02/19/2021 07:47 AM Ordering Location: [facility] Received: 02/19/2021 09:37 AM SERVICES Pathologist: Alanna Millan MD Specimen: Products of Conception PRODUCTS OF CONCEPTION, DILATATION AND CURETTAGE: - IMMATURE CHORIONIC VILLI AND MEMBRANES, CONSISTENT WITH INTRAUTERINE PREGNANCYMG/pl Signing Pathologist Direct Phone Line: [phone] signed by Alanna Millan MD on 02/20/2021 at 10:48 [id number] of conception The specimen is received in fixative and labeled with the patient's name, medical record number and designated as "products of conception" and consists of multiple red-brown tissue fragments received within a plastic cylindrical suction device measuring 6.0 x 4.0 x 2.0 cm in aggregate. The specimen consists of possible villous tissue and decidua. No obvious parts are identified. Rocket Motor Tester sections are submitted into A1 to A3. MG/pl Performed [facility], Department of Pathology, [address] [place] [address], [facility], Department of Pathology, [address] [place] [address], [facility], [address] [place] [address], THKD-CoV2/RT-PCR (Asymptomatic ONLY)2021-02-14 15:29:00 Test Item Value Reference Range Interpretation Comments SARS-COV2/RT-PCR Negative Not Detected, Performanc e of the Xpert (test code = Negative, See Xpress 79319-1) external report SARS-CoV-2/F lianna/RSV test for linked test has only bee n established in nasopharyngeal swab specimens. Use of the Xpert Xpress SARS-CoV-2/Flu/ RSV test with other spec imen types has not b een assessed and pe rformance characteristics are unknown. As wit h any molecular test, mutations withi n the [...] or ot her patient managem ent decisions. Resu lts from the Xpert Xpres s SARS-CoV-2/Flu/ RSV test should be corre lated with the clinic al history, epidem iological data, and other data available to th e clinician evalu ating the patient. Invali d test results may occ ur from improper specim en collection; mary lure to follow the andrew mmended sample collecti on, handling, and s torage procedures; nahed hnical error. False ne gative results may occ ur if virus is presen t at levels below th e analytical limi t of detection (LOD: 131 copies/mL). Vir al nucleic acid ma y persist in vivo, indepe ndent of virus viability . Detection of an alyte target(s) does not imply that the corres ponding virus(es) are i nfectious or are the caus ative agents for clin ical symptoms. Recen t patient exposure to Flu Mist or other live atte nuated influenza vacci patricia may cause inaccurat e positive result s.This test has been a uthorized by FDA under an EUA for use by authoriz ed laboratories. T his test is only authori zed for the duration of the declaration leslye [...] Fact Sh eet for Healthcare Prov iders: https://www.[employer].RoyaltyShare/ Documents/Xpert %20Xpress %50GJJO-SwS-3-F lianna-RSV/30 2-4508%20Rev.%2 0B%20HCP% 20Fact%20Sheet. pdf Fact Sheet for Healt hcare Patients: https://www.[employer].RoyaltyShare/ Documents/Xpert %20Xpress %08PIXD-HgA-5-F lianna-RSV/30 2-4507%20Rev.%2 0B%20Pati ent%20Fact%20Sh eet.pdf SARS-COV-2 SLSL Performed at:[facility] PERFORMING LAB [facility] [id number] (test code = [place] Molly Junaid Colmenares 809[address]-8) [place] [address] ph: [phone] [facility]As[facility] ONLY[facility]2021-02-14 15:29:00 Test Item Value Reference Range Interpretation Comments SARS-COV2/RT-PCR Negative Not Detected, Performanc e of the Xpert (test code = Negative, See Xpress 50849-0) external report SARS-CoV-2/F lianna/RSV test for linked test has only bee n established in nasopharyngeal swab specimens. Use of the Xpert Xpress SARS-CoV-2/Flu/ RSV test with other spec imen types has not b een assessed and pe rformance characteristics are unknown. As wit h any molecular test, mutations withi n the [...] or ot her patient managem ent decisions. Resu lts from the Xpert Xpres s SARS-CoV-2/Flu/ RSV test should be corre lated with the clinic al history, epidem iological data, and other data available to th e clinician evalu ating the patient. Invali d test results may occ ur from improper specim en collection; mary lure to follow the andrew mmended sample collecti on, handling, and s torage procedures; nahed hnical error. False ne gative results may occ ur if virus is presen t at levels below th e analytical limi t of detection (LOD: 131 copies/mL). Vir al nucleic acid ma y persist in vivo, indepe ndent of virus viability . Detection of an alyte target(s) does not imply that the corres ponding virus(es) are i nfectious or are the caus ative agents for clin ical symptoms. Recen t patient exposure to Flu Mist or other live atte nuated influenza vacci patricia may cause inaccurat e positive result s.This test has been a uthorized by FDA under an EUA for use by authoriz ed laboratories. T his test is only authori zed for the duration of the declaration leslye [...] Fact Sh eet for Healthcare Prov iders: https://www.NuVasive.RoyaltyShare/ Documents/Xpert %20Xpress %22HHCM-IuU-2-F lianna-RSV 24508%20Rev.%2 0B%20HCP% 20Fact%20Sheet. pdf Fact Sheet for Healt hcare Patients: https://www.[employer]Vasive.RoyaltyShare/ Documents/Xpert %20Xpress %85TQRO-EyM-8-F lianna-RSV 24507%20Rev.%2 0B%20Pati ent%20Fact%20Sh eet.pdf SARS-COV-2 SLSL Performed at:[facility] PERFORMING LAB [facility] [id number] (test code = Cecilio Colmenares 45792-9) [place] [address] ph: [phone] [facility])2021-02-14 15:29:00 Test Item Value Reference Range Interpretation Comments SARS-COV2/RT-PCR Negative Not Detected, Performanc e of the Xpert (test code = Negative, See Xpress 3184437) external report SARS-CoV-2/F lianna/RSV test for linked test has only bee n established in nasopharyngeal swab specimens. Use of the Xpert Xpress SARS-CoV-2/Flu/ RSV test with other spec imen types has not b een assessed and pe rformance characteristics are unknown. As wit h any molecular test, mutations withi n the [...] or ot her patient managem ent decisions. Resu lts from the Xpert Xpres s SARS-CoV-2/Flu/ RSV test should be corre lated with the clinic al history, epidem iological data, and other data available to th e clinician evalu ating the patient. Invali d test results may occ ur from improper specim en collection; mary lure to follow the andrew mmended sample collecti on, handling, and s torage procedures; nahed hnical error. False ne gative results may occ ur if virus is presen t at levels below th e analytical limi t of detection (LOD: 131 copies/mL). Vir al nucleic acid ma y persist in vivo, indepe ndent of virus viability . Detection of an alyte target(s) does not imply that the corres ponding virus(es) are i nfectious or are the caus ative agents for clin ical symptoms. Recen t patient exposure to Flu Mist or other live atte nuated influenza vacci patricia may cause inaccurat e positive result s.This test has been a uthorized by FDA under an EUA for use by authoriz ed laboratories. T his test is only authori zed for the duration of the declaration leslye [...] sooner.Fact She et for Healthcare Prov iders: https://www.Sidekick Games/ Documents/Xpert %20Xpress %26NNHI-VgN-0-F lianna-RSV/30 2-4508%20Rev.%2 0B%20HCP% 20Fact%20Sheet. pdfFact Sheet for Healt hcare Patients: https://www.Sidekick Games/ Documents/Xpert %20Xpress %57YVPV-CxY-9-F lianna-RSV/30 2-4507%20Rev.%2 0B%20Pati ent%20Fact%20Sh eet.pdf SARS-COV-2 SLSL Performed at:[facility] PERFORMING LAB Renita Burch [id number] (test code = Cecilio Colmenares 7449329) [place], [place] [address]z h: [phone] Type and screen, [id number] 10:55:00 Test Item Value Reference Range Interpretation Comments ABO/RH AUTOMATED (BEAKER) (test B POSITIVE ECHO code = 2260) Ab Scrn (test code = 890-4) NEGATIVE ECHO [facility] HospitalType and screen, [id number] 10:55:00 Test Item Value Reference Range Interpretation Comments ABO/RH AUTOMATED (BEAKER) (test B POSITIVE ECHO code = 2260) Ab Scrn (test code = 890-4) NEGATIVE [facility] + automated [id number] 07:52:00 Test Item Value Reference Range Interpretation Comments WBC (test code = 6690-2) 10.0 See_Comment [A utomated message] The system [employer] generated this result transmitted ref erence range: 4.0 - 10 .0 K/L. The refe rence range was not u sed to interpret this result as normal/abnor mal. RBC (test code = 789-8) 4.55 See_Comment [Au tomated message] The system [employer] generated this result transmitted ref erence range: 4.00 - 5 .00 M/L. The refe rence range was not u sed to interpret this result as normal/abnor mal. MCHC (test code = 786-4) 32.6 See_Comment [A utomated message] The system [employer] generated this result transmitted ref erence range: 32.0 - 3 6.0 GM/DL. The refe rence range was not u sed to interpret this result as normal/abnor mal. Hematocrit (test code = 39.9 % 36.0-46.0 4544-3) MCV (test code = 787-2) 87.7 fL 82.0-99.0 MCH (test code = 785-6) 28.6 pg 27.0-33.0 RDW (test code = 788-0) 12.9 % 12.0-15.0 Platelets (test code = 322 See_Comment [Aut omated message] 777-3) The system [employer] generated this result transmitted ref erence range: 150 - 43 0 K/CU MM. The referen ce range was not u sed to interpret this result as normal/abnor mal. MPV (test code = 9.6 fL 6.0-11.5 66717-9) nRBC (test code = 413) 0 See_Comment [Aut omated message] The system [employer] generated this result transmitted ref erence range: [...] See_Comment [Aut omated message] 670) The system [employer] generated this result transmitted ref erence range: 1.80 - 8 .00 K/L. The refe rence range was not u sed to interpret this result as normal/abnor mal. # Lymphs (test code = 2.38 See_Comment [Auto mated message] 414) The system [employer] generated this result transmitted ref erence range: 1.48 - 4 .50 K/L. The refe rence range was not u sed to interpret this result as normal/abnor mal. # Monos (test code = 0.76 See_Comment [Autom ated message] 415) The system [employer] generated this result transmitted ref erence range: 0.00 - 1 .30 K/L. The refe rence range was not u sed to interpret this result as normal/abnor mal. # Eos (test code = 416) 0.19 See_Comment [Au tomated message] The system [employer] generated this result transmitted ref erence range: 0.00 - 0 .50 K/L. The refe rence range was not u sed to interpret this result as normal/abnor mal. # Baso (test code = 417) 0.04 See_Comment [A utomated message] The system [employer] generated this result transmitted ref erence range: 0.00 - 0 .20 K/L. The refe rence range was not u sed to interpret this result as normal/abnor mal. Immature 1 % 0-0 H Granulocytes-Relative (test code = 2801) Lab Interpretation (test Abnormal code = 52644-8) [facility] with platelet count + automated [id number] 07:52:00 Test Item Value Reference Range Interpretation Comments WBC (test code = 6690-2) 10.0 See_Comment [A utomated message] The system [employer] generated this result transmitted ref erence range: 4.0 - 10 .0 K/L. The refe rence range was not u sed to interpret this result as normal/abnor mal. RBC (test code = 789-8) 4.55 See_Comment [Au tomated message] The system [employer] generated this result transmitted ref erence range: 4.00 - 5 .00 M/L. The refe rence range was not u sed to interpret this result as normal/abnor mal. MCHC (test code = 786-4) 32.6 See_Comment [A utomated message] The system [employer] generated this result transmitted ref erence range: 32.0 - 3 6.0 GM/DL. The refe rence range was not u sed to interpret this result as normal/abnor mal. Hematocrit (test code = 39.9 % 36.0-46.0 4544-3) MCV (test code = 787-2) 87.7 fL 82.0-99.0 MCH (test code = 785-6) 28.6 pg 27.0-33.0 RDW (test code = 788-0) 12.9 % 12.0-15.0 Platelets (test code = 322 See_Comment [Aut omated message] 777-3) The system [employer] generated this result transmitted ref erence range: 150 - 43 0 K/CU MM. The referen ce range was not u sed to interpret this result as normal/abnor mal. MPV (test code = 9.6 fL 6.0-11.5 87701-8) nRBC (test code = 413) 0 See_Comment [Aut omated message] The system [employer] generated this result transmitted ref erence range: [...] See_Comment [Aut omated message] 670) The system [employer] generated this result transmitted ref erence range: 1.80 - 8 .00 K/L. The refe rence range was not u sed to interpret this result as normal/abnor mal. # Lymphs (test code = 2.38 See_Comment [Auto mated message] 414) The system [employer] generated this result transmitted ref erence range: 1.48 - 4 .50 K/L. The refe rence range was not u sed to interpret this result as normal/abnor mal. # Monos (test code = 0.76 See_Comment [Autom ated message] 415) The system [employer] generated this result transmitted ref erence range: 0.00 - 1 .30 K/L. The refe rence range was not u sed to interpret this result as normal/abnor mal. # Eos (test code = 416) 0.19 See_Comment [Au tomated message] The system [employer] generated this result transmitted ref erence range: 0.00 - 0 .50 K/L. The refe rence range was not u sed to interpret this result as normal/abnor mal. # Baso (test code = 417) 0.04 See_Comment [A utomated message] The system [employer] generated this result transmitted ref erence range: 0.00 - 0 .20 K/L. The refe rence range was not u sed to interpret this result as normal/abnor mal. Immature 1 % 0-0 H Granulocytes-Relative (test code = 2801) Lab Interpretation (test Abnormal code = 42975-3) [facility] W/PLT COUNT & AUTO [id number] 07:52:00 Test Item Value Reference Range Interpretation [...] code = 2801) TVP - OB transvaginal Iisjcwkjfe2325-30-00 11:12:00Biparietal DiameterAbdominal CircumferenceFemoral DiameterHead CircumferenceHC/ACEstimated WeightSanta Rosa Memorial HospitalTVP - OB transvaginal [id number] 11:12:00 Biparietal DiameterAbdominal CircumferenceFemoral DiameterHead CircumferenceHC/ACEstimated WeightSanta Rosa Memorial HospitalhCG, quantitative, [id number] 09:11:00 Test Item Value Reference Range Interpretation Comments hCG,Beta 38742 mIU/mL Female Subunit,Qnt,Se (Non- ) 0 - 5 rum (test code (Postmenopau mackenzie) 0 = ) - 8 Female () Week s of Gestation 3 6 - 71 4 10 - 750 5 21 7 - 1138 6 158 - 31 795 7 9166 -897556 8 46967 -248025 9 11691 -219198 10 1904 8 -738248 12 323 15 -649392 14 9067 0 - 22498 15 43878 - 42948 16 1500 - 91904 17 1222 - 57864 18 7188 - 25075Results confirmed ondilution.Mikki PEÑALOZA (test code Performed at: 01 - = ANABELA) [facility] [id number] [place], [place] [id number] Director: Papito López MD, Phone: [phone] [facility] W/ PLT COUNT AUTO [id number] 09:11:00 Test Item Value Reference Range Interpretation Comments WBC (test code = 12.8 See_Comment H [Automated ) message] The system which generated this result transmitted reference range : 3.4 - 10.8 x10E3/uL. The reference range was not used to interpret this result as normal/abnormal . RBC (test code = 4.82 See_Comment [Automated 355-8) message] The system which generated this result transmitted reference range : 3.77 - 5.28 x10E6/uL. The reference range was not used to interpret this result as normal/abnormal . Hemoglobin (test code 13.6 g/dL 11.1-15.9 = ) Hematocrit (test code 41.7 % 34.0-46.6 = ) MCV (test code = 87 fL 79-97 ) MCH (test code = 28.2 pg 26.6-33.0 ) MCHC (test code = 32.6 g/dL [...] ANABELA (test code = ANABELA) Performed at: [facility] [id number] Director: Papito López MD, Phone: [phone] Lab Interpretation Abnormal (test code = 80098-3) [facility] HospitalABORH, [id number] 09:11:00 Test Item Value Reference Range Interpretation Comments ABO Grouping B (test code = 20110414) Rh Factor (test Positive Please note: Prior code = 20110415) records for this patient's ABO / Rh type are notavailable fo r additional verification. ANABELA (test code = Performed at: ANABELA) [address] [id number] Director: Papito López MD, Phone: [phone] [facility] HospitalAntibody Screen ([facility] Only)2021-02-06 09:11:00 Test Item Value Reference Range Interpretation Comments Antibody Screen (test Negative Negative code = 20110410) ANABELA (test code = ANABELA) Performed at: [address] [id number] Director: Papito López MD, Phone: [phone] [facility] HospitalhCG, quantitative, [id number] 09:11:00 Test Item Value Reference Range Interpretation Comments hCG,Beta 06691 mIU/mL Female Subunit,Qnt,Se (Non- ) 0 - 5 rum (test code (Postmenopaus al) 0 - = ) 8 Female (Pregn ant) Weeks of Gestat ion 3 6 - 71 4 10 - 7 50 5 217 - 7138 6 15 8 - 51906 7 3697 -1 54676 8 63767 -908152 9 23264 -808396 1 0 [id number] 1 2 [id number] -[id number] 1 4 19001 - 42006 1 5 79436 - 20271 1 6 9167 - 89442 17 1749 - 95572 18 809 5 - [id number] confirmed ondilution.Roch e ECLIA methodolo gy [facility] (test code Performed at: - = [facility]) [address] [id number] Director: Papito López MD, Phone: [phone] [facility] AUTO [id number] 09:11:00 Test Item Value Reference Range Interpretation Comments WBC (test code = 12.8 See_Comment H [Automated ) message] The system which generated this result transmitted reference range : 3.4 - 10.8 x10E3/uL. The reference range was not used to interpret this result as normal/abnormal . RBC (test code = 4.82 See_Comment [Automated 789-8) message] The system which generated this result transmitted reference range : 3.77 - 5.28 x10E6/uL. The reference range was not used to interpret this result as normal/abnormal . Hemoglobin (test code 13.6 g/dL 11.1-15.9 = ) Hematocrit (test code 41.7 % 34.0-46.6 = ) MCV (test code = 87 fL 79-97 ) MCH (test code = 28.2 pg 26.6-33.0 ) MCHC (test code = 32.6 g/dL [...] (test code = 15 % Not Estab. 5155620) % Monos (test code = 8 % [...] 1 % Not Estab. (test code = 5476778) # Immature Grans 0.1 See_Comment [Automated (test code = ) messag e] The system which generated this result transmitted reference range : 0.0 - 0.1 x10E3/uL. The reference range was not used to interpret this result as normal/abnormal . [facility]NA[facility]A (test code = ANABELA) Performed at: [facility] [id number] Director: Papito López MD, Phone: [phone] Lab Interpretation Abnormal (test code = 39274-8) [facility], [id number] 09:11:00 Test Item Value Reference Range Interpretation Comments ABO Grouping B (test code = 2177088) Rh Factor (test Positive Please note: Prior code = 8330350) records for this patient's ABO / Rh type are notavailable fo r additional verification. [facility] (test code = Performed at: [facility]) [facility] [id number] Director: Papito López MD, Phone: [phone] [facility])2021-02-06 09:11:00 Test Item Value Reference Range Interpretation Comments Antibody Screen (test Negative Negative code = 9498226) [facility]A (test code = ANABELA) Performed at: [facility] [id number] Director: Papito López MD, Phone: [phone] [facility]
[2022-09-11 20:02] LABS: SARS-COV-2 RT PCR NEGATIVE (NEGATIVE)
--- NOTE | 2022-09-11 20:30 | ER ---
Nurse's Notes [facility] Name: Michelle Yeh Age: 47 yrs Sex: Female : 1975 Arrival Date: 09/11/2022 Time: 18:22 Bed DIS3 Private MD: Gregorio Lara V Diagnosis: Acute upper respiratory infection, unspecified Presentation: 09/11 19:02 Chief complaint: Patient states: she has had flu symptoms since Thursday09/04/2022. ap3 Patient states she has congestion, cough, body aches and chills and no fever. Coronavirus screen: Client presents with at least one sign or symptom that may indicate coronavirus-19. Ebola Screen: No symptoms or risks identified at this time. Initial Sepsis Screen: Does the patient meet any 2 criteria? No. Patient's initial sepsis screen is negative. Does the patient have a suspected source of infection? No. Patient's initial sepsis screen is negative. Risk Assessment: Do you want to hurt yourself or someone else? Patient reports no desire to harm self or others. Onset of symptoms was September 04, 2022. 19:02 Method Of Arrival: Ambulatory ap3 19:02 Acuity: CJ 3 ap3 Triage Assessment: 19:05 General: Appears ill, Behavior is calm, cooperative, Reports chills for feeling ill for ap3 fatigue for. Pain: Complains of pain in body aches. EENT: Reports nasal congestion nasal discharge. Neuro: Level of Consciousness is awake, alert, obeys commands, Oriented to person, place, time, situation, Gait is steady, Speech is normal. Cardiovascular: Patient's skin is warm and dry. Respiratory: Airway is patent Respiratory effort is even, unlabored. 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 - Social history:: Smoking status: Patient denies any tobacco usage or history of. Patient uses alcohol, but reports only rare drinking. Screenin:05 Abuse screen: Denies threats or abuse. Nutritional screening: No deficits noted. ap3 Tuberculosis screening: No symptoms or risk factors identified. Fall Risk None identified. Assessment: 20:43 General: ambulating without difficulty. Patient discharged by provider. tw5 Vital Signs: 19:02 BP 150 / 96; Pulse 108; Resp 17; Temp 98.1; Pulse Ox 100% ; Weight 81.65 kg; Height 5 ap3 ft. 4 in. (162.56 cm); 19:02 Body Mass Index 30.90 (81.65 kg, 162.56 cm) ap3 ED Course: 18:22 Patient arrived in ED. rg4 18:22 Gregorio Lara MD is Private Physician. rg4 19:04 Triage completed. ap3 19:05 Arm band placed on left wrist. ap3 19:07 Gila Levin [facility]-C [facility] sb4 19:07 Leo Love MD is Attending Physician. sb4 20:29 Gregorio Lara MD is Referral Physician. sb4 20:43 Patient has correct armband on for positive identification. tw5 20:43 No provider procedures requiring assistance completed. Patient did not have IV access tw5 during this emergency room visit. Administered Medications: No medications were administered Medication: 20:43 VIS not applicable for this client. tw5 Outcome: 20:30 Discharge ordered by . sb4 20:43 Discharged to home ambulatory. tw5 20:43 Condition: good 20:43 Discharge instructions given to patient, discharge instruction provided by provider 20:44 Patient left the ED. tw5 Signatures: Moriah Lackey rg4 Debby Bedoya RN RN ap3 Daniela Low tw5 Gila Levin PA-C PA-C sb4
--- NOTE | 2022-09-11 20:30 | EDPHYS ---
Physician Documentation [facility] Name: Michelle Yeh Age: 47 yrs Sex: Female : 1975 Arrival Date: 09/11/2022 Time: 18:22 Bed DIS3 Private MD: Gregorio Lara V ED Physician Leo Love HPI: 09/11 19:13 This 47 yrs old Female presents to ER via Ambulatory with complaints of Flu sb4 Symptoms. 19:13 Associated signs and symptoms: Pertinent positives: congestion, cough, earache, sb4 headache, nasal discharge, sore throat, Pertinent negatives: abdominal pain, chest pain, fever, shortness of breath, vomiting, wheezing. 21:47 Onset: The symptoms/episode began/occurred 6 day(s) ago. Modifying factors: The patient sb4 symptoms are alleviated by nothing, the patient symptoms are aggravated by swallowing. The patient has not experienced similar symptoms in the past. The patient has not recently seen a physician. 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 She has been feeling poorly for about 6 days, mostly a sore throat and cough. . 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 - Social history:: Smoking status: Patient denies any tobacco usage or history of. Patient uses alcohol, but reports only rare drinking. ROS: 21:47 Constitutional: Negative for fever, chills, and weight loss, Eyes: Negative for injury, sb4 pain, redness, and discharge, Cardiovascular: Negative for chest pain, palpitations, and edema, Respiratory: Negative for shortness of breath, cough, wheezing, and pleuritic chest pain, Abdomen/GI: Negative for abdominal pain, nausea, vomiting, diarrhea, and constipation, MS/Extremity: Negative for injury and deformity, Skin: Negative for injury, rash, and discoloration. 21:47 ENT: Positive for sinus congestion, sore throat. 21:47 Respiratory: Positive for cough. Exam: 21:47 Constitutional: This is a well developed, well nourished patient who is awake, alert, sb4 and in no acute distress. Head/Face: Normocephalic, atraumatic. Eyes: Pupils equal round and reactive to light, extra-ocular motions intact. Periorbital areas with no swelling, redness, or edema. Cardiovascular: Regular rate and rhythm with a normal S1 and S2. Respiratory: Lungs have equal breath sounds bilaterally, clear to auscultation and percussion. No rales, rhonchi or wheezes noted. No increased work of breathing, no retractions or nasal flaring. Abdomen/GI: Soft, non-tender, no distension. 21:47 ENT: Posterior pharynx: swelling, erythema. Vital Signs: 19:02 BP 150 / 96; Pulse 108; Resp 17; Temp 98.1; Pulse Ox 100% ; Weight 81.65 kg; Height 5 ap3 ft. 4 in. (162.56 cm); 19:02 Body Mass Index 30.90 (81.65 kg, 162.56 cm) ap3 MDM: 19:07 Patient medically screened. sb4 21:47 Data reviewed: vital signs, nurses notes, lab test result(s), Flu: negative and as a sb4 result, I will discharge patient. 09/11 19:12 Order name: COVID-19/FLU A+B; Complete Time: 20:14 sb4 09/11 19:12 Order name: Strep; Complete Time: 19:38 sb4 09/11 19:43 Order name: Throat Culture EDMS Administered Medications: No medications were administered Disposition Summary: 09/11/22 20:30 Discharge Ordered Location: Home sb4 Problem: new sb4 Symptoms: are unchanged sb4 Condition: Stable sb4 Diagnosis - Acute upper respiratory infection, unspecified sb4 Followup: sb4 - With: Gregorio Lara MD - When: 2 - 3 days - Reason: Recheck today's complaints, Continuance of care, Re-evaluation by your physician Discharge Instructions: - Discharge Summary Sheet sb4 - Upper Respiratory Infection, Adult sb4 Forms: - Medication Reconciliation Form sb4 - Thank You Letter sb4 - Antibiotic Education sb4 - Prescription Opioid Use sb4 Prescriptions: - promethazine-DM - take 5 milliliter by ORAL route every 4-6 hours; 1 bottle; Refills: 0, Product sb4 Selection Permitted - Prednisone 20 mg Oral Tablet - take 1 tablet by ORAL route every 12 hours for 5 days; 10 tablet; Refills: 0, sb4 Product Selection Permitted Signatures: Dispatcher [employer] Debby Parker RN RN ap3 Gila Levin, PAGifty PAGifty sb4
[2022-09-11 21:11] VITALS: BP 150/96; TEMP 98.1; O2SAT 100
== END 2022-09-11 20:44 | disposition home or self-care (01) ==
LOC: ER 18:21
DX: J06.9 Acute upper respiratory infection, unspecified (principal); Z20.822 Contact with and (suspected) exposure to COVID-19; Z88.1 Allergy status to other antibiotic agents; Z88.6 Allergy status to analgesic agent; Z88.8 Allergy status to other drugs, medicaments and biological substances
CPT/HCPCS: 87070; 87081; 0240U; 99281